=== PATIENT | male | born 1940 | race Caucasian/White ===

== ENCOUNTER 2016-05-18 09:00 | Outpatient (CLI) | payer MEDICARE, OTHER | END 2016-05-18 09:01 | disposition home or self-care (01) | DX: C61 Malignant neoplasm of prostate (principal) ==

== ENCOUNTER 2016-12-20 08:05 | Outpatient (CLI) | payer MEDICARE, OTHER ==
[2016-12-20 13:26] LABS: PSA TOTAL 0.16 ng/mL (0.000-2.000)
== END 2016-12-20 08:06 | disposition home or self-care (01) ==
LOC: LAB.WCP 08:05
PROVIDERS: ATTEND Family Medicine
DX: C61 Malignant neoplasm of prostate (principal)
CPT/HCPCS: 36415; 84153; 84403

== ENCOUNTER 2017-01-03 09:08 | Outpatient (CLI) | payer MEDICARE, OTHER ==
--- NOTE | 2017-01-03 10:40 | Ultrasound Report ---
LIMITED RETROPERITONEAL ULTRASOUND: 01/03/2017 CLINICAL INDICATION: Aneurysm followup. COMPARISON: 09/15/2015 TECHNIQUE: Real-time scanning was performed with group sales representative static images obtained. FINDINGS: The abdominal aorta measures 2.4 cm proximally, and 2.6 cm in the mid portion. Aneurysmal dilatation of the distal abdominal aorta has increased, now measuring 4.3 x 3.9 cm (previously 3.5 x 3.3 cm). Mural thrombus is again seen. The iliacs remain normal in caliber. No free fluid is pres ent. IMPRESSION: INCREASING SIZE OF DISTAL ABDOMINAL AORTIC ANEURYSM, NOW MEASURING 4.3 X 3.9 CM. JOB #: [id number] EXT JOB #:[id number]
== END 2017-01-03 09:09 | disposition home or self-care (01) ==
LOC: DI 09:08
PROVIDERS: ATTEND Family Medicine
DX: I71.4 Abdominal aortic aneurysm, without rupture (principal)
CPT/HCPCS: 76775

== ENCOUNTER 2017-07-03 07:20 | Outpatient (CLI) | payer MEDICARE, OTHER ==
[2017-07-03 13:49] LABS: CHOL/HDL RATIO 4.8 (<5.0); CHOLESTEROL 174 mg/dL; HDL CHOLESTEROL 36 mg/dL; LDL CHOLESTEROL,CALCULATED 106 mg/dL; LDL/HDL RATIO 2.9 (<3.6); VLDL CHOLESTEROL 32 mg/dL
== END 2017-07-03 07:21 | disposition home or self-care (01) ==
LOC: LAB.WCP 07:20
PROVIDERS: ATTEND Family Medicine
DX: E78.5 Hyperlipidemia, unspecified (principal); C61 Malignant neoplasm of prostate; E03.9 Hypothyroidism, unspecified
CPT/HCPCS: 36415; 80061; 83721; 84153; 84443

== ENCOUNTER 2018-01-18 07:18 | Outpatient (CLI) | payer MEDICARE, OTHER ==
[2018-01-18 12:56] LABS: BASOPHILS # (AUTO) 0.1 10^3/uL (0.0-0.1); BASOPHILS % (AUTO) 0.8 %; EOSINOPHILS # (AUTO) 0.3 10^3/uL (0.0-0.7); EOSINOPHILS % (AUTO) 4.4 %; HGB - HEMOGLOBIN 14.3 g/dL (14.0-18.0); LYMPHOCYTES # (AUTO) 2.5 10^3/uL (1.5-3.5); LYMPHOCYTES % (AUTO) 37.9 %; MEAN CORPUSCULAR HEMOGLOBIN 32.1 pg (27.0-31.0); MEAN CORPUSCULAR HGB CONC 34.6 g/dL (32.0-36.0); MEAN CORPUSCULAR VOLUME 92.9 fL (80.0-94.0); MEAN PLATELET VOLUME 7.9 fL (7.4-11.4); MONOCYTES # (AUTO) 0.6 10^3/uL (0.0-1.0); MONOCYTES % (AUTO) 8.8 %; NEUTROPHILS # (AUTO) 3.2 10^3/uL (1.5-6.6); NEUTROPHILS % (AUTO) 48.1 %; PLT - PLATELET COUNT 218 10^3/uL (130-450); RED BLOOD COUNT 4.44 10^6/uL (4.70-6.10); RED CELL DISTRIBUTION WIDTH 13.2 % (12.0-15.0); WHITE BLOOD COUNT 6.6 x10^3/uL (4.8-10.8)
[2018-01-18 13:08] LABS: ALBUMIN 3.7 g/dL (3.2-5.5); ALBUMIN/GLOBULIN RATIO 1.2 (1.0-2.2); ALKALINE PHOSPHATASE 56 IU/L (42-121); ALT ALANINE AMINOTRANSFERASE 14 IU/L (10-60); AST ASPARTATE AMINOTRANSFERASE 19 IU/L (10-42); BILIRUBIN,TOTAL 0.8 mg/dL (0.2-1.0); BUN - BLOOD UREA NITROGEN 20 mg/dL (6-20); CREATININE 1.1 mg/dL (0.6-1.2); GFR - MDRD 65 (>89); TOTAL PROTEIN 6.7 g/dL (6.7-8.2)
[2018-01-18 13:25] LABS: CALCIUM 8.9 mg/dL (8.5-10.3); CARBON DIOXIDE - CO2 26 mmol/L (21-32); CHLORIDE 105 mmol/L (101-111); GLUCOSE 94 mg/dL (70-100); SODIUM 139 mmol/L (135-145)
== END 2018-01-18 07:19 | disposition home or self-care (01) ==
LOC: LAB.WCP 07:18
PROVIDERS: ATTEND Family Medicine
DX: E78.5 Hyperlipidemia, unspecified (principal); E03.9 Hypothyroidism, unspecified; C61 Malignant neoplasm of prostate
CPT/HCPCS: 36415; 80053; 84153; 84443; 85025

== ENCOUNTER 2018-01-23 17:28 | Emergency (ER) | payer MEDICARE, OTHER ==
[2018-01-23 17:55] VITALS: BP 120/79
--- NOTE | 2018-01-23 20:12 | ED Physician Documentation ---
PD HPI UPPER EXT INJURY - Stated complaint Stated Complaint: HOOK IN LT FINGER - Chief complaint Chief Complaint: Wound - History obtained from History obtained from: Patient - History of Present Illness Location: Left, Finger Type of injury: Foreign body Where injury occurred: Other Timing - onset: Enter time (13:00), Today Timing - duration: Hours Timing - details: Abrupt onset Pain level now: 3 Improved by: Rest Worsened by: Moving Associated symptoms: No: Weakness, Numbness Contributing factors: No: Anticoagulated Recently seen: Not recently seen - Additonal information Additional information: amrik become lodged in left fourth digit 1 PM today. Patient is right-hand dominant. Denies weakness, numbness. 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 Skin: reports: Other (FB (waynehoramírez) left fourth digit) Musculoskeletal: reports: Extremity pain Neurologic: denies: Focal weakness, Numbness PD PAST MEDICAL HISTORY - Past Medical History Past Medical History: No Cardiovascular: Hypertension, High cholesterol Respiratory: None, Sleep apnea Endocrine/Autoimmune: HyPOthyroidism GI: None : None HEENT: None Musculoskeletal: None Derm: None Other Past Medical History: prostate CA - Past Surgical History Past Surgical History: No - Present Medications Home Medications: Ambulatory Orders Medication Instructions Recorded Confirmed Levothyroxine Sodium [Synthroid] 100 mcg PO DAILY 07/12/13 11/18/13 Propranolol HCl 20 mg PO DAILY 07/12/13 11/18/13 Aspirin [Aspir 81] 81 mg PO DAILY 11/11/13 11/18/13 Atorvastatin Calcium [Lipitor] 40 mg PO DAILY 11/11/13 11/18/13 - Allergies Allergies/Adverse Reactions: Allergies Allergy/AdvReac Type Severity Reaction Status Date / Time tuberculin, purified protein Allergy Unknown Verified 07/12/13 14:02 deriva [Tuberculin,Purif.Prot.Deriv.] - Social History Does the pt smoke?: No Smoking Status: Never smoker Does the pt drink ETOH?: No Does the pt have substance abuse?: No - Immunizations Immunizations are current?: Yes - POLST Patient has POLST: No PD ED PE NORMAL - Vitals Vital signs reviewed: Yes - General General: Alert and oriented X 3, No acute distress, Well developed/nourished - Neuro Neuro: No motor deficit, No sensory deficit PD ED PE EXPANDED - Extremities NADINE UE/Hands Visual: 1 - tenderness (fishhook (3mm of metal from puncture wound)) Results - Vitals Vitals: Vital Signs - 24 hr 01/23/18 17:51 Temperature 36.1 C L Heart Rate 64 Respiratory 16 Rate Blood Pressure 120/79 O2 Saturation 97 Oxygen O2 Source Room air Procedures - FB removal FB location: Subcutaneous FB removal preparation: Local anesthesia-specify (2%lidocaine without epinephrine) Removal method: Foreceps, Other (slow, steady traction back through puncture site: there was only mild resistance. Initial attempt at pushing the hook forward did not result in any significant protrusion to suggest the tip was superficial enough to attempt to push the hook forward and through the skin.) FB removal aftercare: No complications (After removal, the site was inspected; there remains a tiny (1-2mm) puncture wound but no laceration or enlargement of the initial puncture site (likely due to the very small size of the olesya). LTS intact distally, no active bleeding. FROM (flexion and extension) and non tender to palpation), Patient tolerated well, Removed successfully PD MEDICAL DECISION MAKING - ED course Complexity details: considered differential, d/w patient - Sepsis Event Vital Signs: Vital Signs - 24 hr 01/23/18 17:51 Temperature 36.1 C L Heart Rate 64 Respiratory 16 Rate Blood Pressure 120/79 O2 Saturation 97 Oxygen O2 Source Room air Departure - Departure Disposition: 01 Home, Self Care Clinical Impression: [place] injury to finger Qualifiers: Encounter type: initial encounter Laterality: left Qualified Code(s): S69.92XA - Unspecified injury of left wrist, hand and finger(s), initial encounter Condition: Good Instructions: ED Puncture Wound Fish Hook Removed, ED Immunization Tetanus and FU Discharge Date/Time: 01/23/18 20:42
[2018-01-23] MEDS ORDERED: LIDOCAINE 2% 10 ML MDV ONE (20:17)
[2018-01-23] MEDS ORDERED: BACITRACIN OINT TOP STA (20:34)
[2018-01-23] MEDS ORDERED: TETANUS/DIPHTHERIA/PERTUSSIS 0.5 ML SYRINGE IM ONE (20:34)
== END 2018-01-23 20:42 | disposition home or self-care (01) ==
LOC: ED 17:28
DX: S61.245A Puncture wound with foreign body of left ring finger without damage to nail, initial encounter (principal); W45.8XXA Other foreign body or object entering through skin, initial encounter; Z23 Encounter for immunization; I10 Essential (primary) hypertension; E78.00 Pure hypercholesterolemia, unspecified; E03.9 Hypothyroidism, unspecified; Z85.46 Personal history of malignant neoplasm of prostate; Z79.82 Long term (current) use of aspirin
CPT/HCPCS: 10120; 90471; 90715; 99282; A9270

== ENCOUNTER 2018-08-08 08:00 | Outpatient (CLI) | payer MEDICARE, OTHER ==
[2018-08-08 13:12] LABS: BASOPHILS # (AUTO) 0.1 10^3/uL (0.0-0.1); EOSINOPHILS # (AUTO) 0.3 10^3/uL (0.0-0.7); EOSINOPHILS % (AUTO) 3.9 %; LYMPHOCYTES # (AUTO) 2.5 10^3/uL (1.5-3.5); LYMPHOCYTES % (AUTO) 37.3 %; MEAN CORPUSCULAR HEMOGLOBIN 31.8 pg (27.0-31.0); MEAN CORPUSCULAR HGB CONC 34.4 g/dL (32.0-36.0); MEAN CORPUSCULAR VOLUME 92.6 fL (80.0-94.0); MEAN PLATELET VOLUME 8.2 fL (7.4-11.4); MONOCYTES # (AUTO) 0.5 10^3/uL (0.0-1.0); MONOCYTES % (AUTO) 8.3 %; NEUTROPHILS # (AUTO) 3.3 10^3/uL (1.5-6.6); NEUTROPHILS % (AUTO) 49.5 %; PLT - PLATELET COUNT 223 10^3/uL (130-450); RED CELL DISTRIBUTION WIDTH 13.1 % (12.0-15.0); WHITE BLOOD COUNT 6.6 x10^3/uL (4.8-10.8)
[2018-08-08 13:43] LABS: ALBUMIN 3.7 g/dL (3.2-5.5); ALBUMIN/GLOBULIN RATIO 1.2 (1.0-2.2); ALKALINE PHOSPHATASE 59 IU/L (42-121); ALT ALANINE AMINOTRANSFERASE 17 IU/L (10-60); AST ASPARTATE AMINOTRANSFERASE 21 IU/L (10-42); BILIRUBIN,TOTAL 1.2 mg/dL (0.2-1.0); BUN - BLOOD UREA NITROGEN 22 mg/dL (6-20); CALCIUM 8.7 mg/dL (8.5-10.3); CARBON DIOXIDE - CO2 23 mmol/L (21-32); CHLORIDE 105 mmol/L (101-111); CHOL/HDL RATIO 4.3 (<5.0); CHOLESTEROL 151 mg/dL; CREATININE 1.1 mg/dL (0.6-1.2); GFR - MDRD 65 (>89); GLUCOSE 97 mg/dL (70-100); HDL CHOLESTEROL 35 mg/dL; LDL CHOLESTEROL,CALCULATED 92 mg/dL; LDL/HDL RATIO 2.6 (<3.6); SODIUM 137 mmol/L (135-145); TOTAL PROTEIN 6.9 g/dL (6.7-8.2); VLDL CHOLESTEROL 24 mg/dL
[2018-08-08 13:48] LABS: HB2 TOTAL 15.2 g/dL; HEMOGLOBIN A1C 0.57 g/dL; HEMOGLOBIN A1C % 5.6 % (4.6-6.2)
== END 2018-08-08 23:59 | disposition home or self-care (01) ==
LOC: LAB.WCP 08:00
PROVIDERS: ATTEND Family Medicine
DX: C61 Malignant neoplasm of prostate (principal); D12.6 Benign neoplasm of colon, unspecified; E78.5 Hyperlipidemia, unspecified; I71.4 Abdominal aortic aneurysm, without rupture
CPT/HCPCS: 36415; 80053; 80061; 83036; 83721; 84153; 84443; 85025

== ENCOUNTER 2018-09-03 12:30 | Outpatient (CLI) | payer MEDICARE, OTHER ==
--- NOTE | 2018-09-03 16:51 | Ultrasound Report ---
Reason: AAA Procedure Date: 09/03/2018 Accession Number: [id number] / [id number] Procedure: US - Retroperitoneal Limited CPT Code: FULL RESULT: EXAM: AORTIC DOPPLER ULTRASOUND EXAM DATE: 09/03/2018 01:14 PM. CLINICAL HISTORY: AAA follow-up. COMPARISON: 01/03/2017 and 09/15/2015. TECHNIQUE: Real-time sonographic imaging of retroperitoneal vascular structures, including color-flow, Doppler flow and spectral analysis was performed by the billet recorder. Multiple in store representative static images were saved for review. FINDINGS: Aorta: The abdominal aorta was adequately imaged. Aortic measurements in centimeters as follows: Proximal sagittal 2.3 Mid transverse 2.3 x 2.7 Distal transverse 4.4 x 4.4. Prior measurements 4.3 x 3.9 cm in 2016 and 3.5 x 3.3 cm in 2015. Iliac Vessels: The proximal common iliac arteries are normal in caliber. Measurements in centimeters: Transverse right 0.9 x 0.9 and transverse left 0.9 x 1.0. Other: Aortic plaque is present as well as mural thrombus at the level of the aneurysm. IMPRESSION: Known distal abdominal aortic aneurysm currently 4.4 x 4.4 cm, previously 4.3 x 3.9 cm in 2016 and 3.5 x 3.3 cm in 2015. RADIA
== END 2018-09-03 12:31 | disposition home or self-care (01) ==
LOC: DI 12:30
PROVIDERS: ATTEND Family Medicine
DX: I71.4 Abdominal aortic aneurysm, without rupture (principal)
CPT/HCPCS: 76775

== ENCOUNTER 2020-02-12 08:10 | Outpatient (CLI) | payer MEDICARE, OTHER ==
[2020-02-12 11:56] LABS: BASOPHILS # (AUTO) 0.1 10^3/uL (0.0-0.1); EOSINOPHILS # (AUTO) 0.2 10^3/uL (0.0-0.7); EOSINOPHILS % (AUTO) 3.3 %; HGB - HEMOGLOBIN 13.8 g/dL (14.0-18.0); LYMPHOCYTES # (AUTO) 2.2 10^3/uL (1.5-3.5); LYMPHOCYTES % (AUTO) 30.4 %; MEAN CORPUSCULAR HEMOGLOBIN 31.9 pg (27.0-31.0); MEAN CORPUSCULAR HGB CONC 33.4 g/dL (32.0-36.0); MEAN CORPUSCULAR VOLUME 95.4 fL (80.0-94.0); MEAN PLATELET VOLUME 9.9 fL (7.4-11.4); MONOCYTES # (AUTO) 0.6 10^3/uL (0.0-1.0); MONOCYTES % (AUTO) 8.3 %; NEUTROPHILS # (AUTO) 4.1 10^3/uL (1.5-6.6); NEUTROPHILS % (AUTO) 56.7 %; PLT - PLATELET COUNT 247 10^3/uL (130-450); RED BLOOD COUNT 4.33 10^6/uL (4.70-6.10); RED CELL DISTRIBUTION WIDTH 12.7 % (12.0-15.0); WHITE BLOOD COUNT 7.2 x10^3/uL (4.8-10.8)
[2020-02-12 12:18] LABS: ALBUMIN 3.7 g/dL (3.2-5.5); ALBUMIN/GLOBULIN RATIO 1.2 (1.0-2.2); ALKALINE PHOSPHATASE 59 IU/L (42-121); ALT ALANINE AMINOTRANSFERASE 17 IU/L (10-60); AST ASPARTATE AMINOTRANSFERASE 18 IU/L (10-42); BILIRUBIN,TOTAL 0.9 mg/dL (0.2-1.0); BUN - BLOOD UREA NITROGEN 26 mg/dL (6-20); CALCIUM 8.9 mg/dL (8.5-10.3); CARBON DIOXIDE - CO2 26 mmol/L (21-32); CHLORIDE 107 mmol/L (101-111); CHOLESTEROL 171 mg/dL; CREATININE 1.1 mg/dL (0.6-1.2); GLUCOSE 104 mg/dL (70-100); HDL CHOLESTEROL 43 mg/dL; LDL CHOLESTEROL,CALCULATED 114 mg/dL; LDL/HDL RATIO 2.7 (<3.6); SODIUM 140 mmol/L (135-145); TOTAL PROTEIN 6.8 g/dL (6.7-8.2); VLDL CHOLESTEROL 14 mg/dL
== END 2020-02-12 23:59 | disposition home or self-care (01) ==
LOC: LAB.WCP 08:10
PROVIDERS: ATTEND Family Medicine
DX: E78.5 Hyperlipidemia, unspecified (principal); G47.30 Sleep apnea, unspecified; E03.9 Hypothyroidism, unspecified
CPT/HCPCS: 36415; 80053; 80061; 83721; 84443; 85025

== ENCOUNTER 2020-06-05 10:36 | Outpatient (CLI) | payer MEDICARE, OTHER ==
[2020-06-05] MEDS ORDERED: IOVERSOL 320 100 ML VIAL IVP ONE ×2 (10:51→12:02)
[2020-06-05 11:31] LABS: CREATININE 1.1 mg/dL (0.6-1.2)
--- NOTE | 2020-06-05 12:28 | CT Report ---
PROCEDURE: ANGIO ABDOMEN/PELVIS W INDICATIONS: AAA CONTRAST: IV CONTRAST: Optiray 320 ml: 100 PO CONTRAST: *NO PO CONTRAST TECHNIQUE: After the administration of intravenous contrast, 2 and 5 mm sections acquired from the diaphragm to the iliac crests. 3-dimensional maximum intensity projection (MIP) coronal and sagittal reformats, a nd/or 3-dimensional volume rendering reformatting was then performed. For radiation dose reduction, the following was used: automated exposure control, adjustment of mA and/or kV according to patient size. COMPARISON: None FINDINGS: Image quality: Excellent. Extravascular tissues: Lung bases are clear. Moderate bibasilar pneumonia. Heart size is normal. Li cris and spleen are normal in size and enhancement. Multiple calcifications within the spleen. Gallbl adder is within normal limits Biliary system is non dilated. Pancreas enhances normally. No adrena l nodules. Kidneys are normal in size and enhancement, without hydronephrosis. Non-opacified bowel loops demonstrate normal wall thickness and caliber. Normal appendix. No free fluid or air. No retr operitoneal or mesenteric adenopathy. No ventral hernias. No suspicious bony abnormalities. Multil evel degenerative disc and facet disease within the lumbosacral spine. Probable significant foraminal stenoses at L4-L5 and L5-S1. No vertebral body compression fractures. Multiple seeds within the pro state. Abdominal aorta: A 55 mm short axis abdominal aortic aneurysm is present which demonstrates moderate mural thrombus. The abdominal aorta is mildly aneurysmal at 36 mm short axis, roughly 26 mm inferior to the left renal artery. IMPRESSION: 1. Abdominal aortic aneurysm as described above. 2. Emphysema. 3. Normal appendix. 4. Degenerative disc and facet disease within the lumbosacral spine with probable significant foramin al stenoses at L4-L5 and L5-S1. This could be further assessed with lumbar spine MRI, if clinically i ndicated. Reviewed by: Ranjit Reyes MD on 06/05/2020 12:27 PM PST Approved by: Ranjit Reyes MD on 06/05/2020 12:27 PM PST Station ID: [id number]
== END 2020-06-05 10:37 | disposition home or self-care (01) ==
LOC: LAB 10:36 → DI 10:37
PROVIDERS: ATTEND Surgery
DX: I71.4 Abdominal aortic aneurysm, without rupture (principal)
CPT/HCPCS: 36415; 74174; 82565; 84520; Q9967

== ENCOUNTER 2020-08-21 12:06 | Outpatient (CLI) | payer MEDICARE, OTHER ==
[2020-08-21 18:18] LABS: BASOPHILS # (AUTO) 0.1 10^3/uL (0.0-0.1); BASOPHILS % (AUTO) 0.9 %; EOSINOPHILS # (AUTO) 0.3 10^3/uL (0.0-0.7); EOSINOPHILS % (AUTO) 3.5 %; HCT - HEMATOCRIT 38.3 % (42.0-52.0); HGB - HEMOGLOBIN 12.4 g/dL (14.0-18.0); LYMPHOCYTES # (AUTO) 2.1 10^3/uL (1.5-3.5); LYMPHOCYTES % (AUTO) 28.2 %; MEAN CORPUSCULAR HEMOGLOBIN 30.8 pg (27.0-31.0); MEAN CORPUSCULAR HGB CONC 32.4 g/dL (32.0-36.0); MEAN PLATELET VOLUME 9.3 fL (7.4-11.4); MONOCYTES # (AUTO) 0.7 10^3/uL (0.0-1.0); MONOCYTES % (AUTO) 9.6 %; NEUTROPHILS # (AUTO) 4.3 10^3/uL (1.5-6.6); NEUTROPHILS % (AUTO) 57.5 %; PLT - PLATELET COUNT 244 10^3/uL (130-450); RED BLOOD COUNT 4.03 10^6/uL (4.70-6.10); RED CELL DISTRIBUTION WIDTH 12.6 % (12.0-15.0); WHITE BLOOD COUNT 7.5 x10^3/uL (4.8-10.8)
[2020-08-21 18:36] LABS: ALBUMIN 3.8 g/dL (3.2-5.5); ALBUMIN/GLOBULIN RATIO 1.1 (1.0-2.2); ALKALINE PHOSPHATASE 75 IU/L (42-121); ALT ALANINE AMINOTRANSFERASE 13 IU/L (10-60); AST ASPARTATE AMINOTRANSFERASE 16 IU/L (10-42); BILIRUBIN,TOTAL 0.6 mg/dL (0.2-1.0); BUN - BLOOD UREA NITROGEN 22 mg/dL (6-20); CALCIUM 9.3 mg/dL (8.5-10.3); CARBON DIOXIDE - CO2 26 mmol/L (21-32); CHLORIDE 105 mmol/L (101-111); CHOL/HDL RATIO 3.7 (<5.0); CHOLESTEROL 156 mg/dL; CREATININE 1.2 mg/dL (0.6-1.2); GFR - MDRD 58 (>89); GLUCOSE 110 mg/dL (70-100); HDL CHOLESTEROL 42 mg/dL; LDL CHOLESTEROL,CALCULATED 93 mg/dL; LDL/HDL RATIO 2.2 (<3.6); POTASSIUM 4.3 mmol/L (3.5-5.0); SODIUM 141 mmol/L (135-145); TOTAL PROTEIN 7.2 g/dL (6.7-8.2); TRIGLYCERIDES 106 mg/dL; VLDL CHOLESTEROL 21 mg/dL
[2020-08-21 18:51] LABS: THYROID STIMULATING HORMONE 0.44 uIU/mL (0.34-5.60)
== END 2020-08-21 23:59 | disposition home or self-care (01) ==
LOC: LAB.WCP 12:06
PROVIDERS: ATTEND Family Medicine
DX: E78.5 Hyperlipidemia, unspecified (principal); C61 Malignant neoplasm of prostate; E03.9 Hypothyroidism, unspecified; I71.4 Abdominal aortic aneurysm, without rupture
CPT/HCPCS: 36415; 80053; 80061; 83721; 84153; 84443; 85025

== ENCOUNTER 2021-03-18 07:24 | Outpatient (CLI) | payer MEDICARE, OTHER ==
[2021-03-18 12:30] LABS: BASOPHILS # (AUTO) 0.1 10^3/uL (0.0-0.1); BASOPHILS % (AUTO) 1.4 %; EOSINOPHILS # (AUTO) 0.2 10^3/uL (0.0-0.7); EOSINOPHILS % (AUTO) 3.4 %; HCT - HEMATOCRIT 41.9 % (42.0-52.0); HGB - HEMOGLOBIN 13.6 g/dL (14.0-18.0); LYMPHOCYTES # (AUTO) 2.1 10^3/uL (1.5-3.5); LYMPHOCYTES % (AUTO) 36.9 %; MEAN CORPUSCULAR HEMOGLOBIN 30.8 pg (27.0-31.0); MEAN CORPUSCULAR HGB CONC 32.5 g/dL (32.0-36.0); MEAN PLATELET VOLUME 9.5 fL (7.4-11.4); MONOCYTES # (AUTO) 0.5 10^3/uL (0.0-1.0); MONOCYTES % (AUTO) 8.6 %; NEUTROPHILS # (AUTO) 2.8 10^3/uL (1.5-6.6); NEUTROPHILS % (AUTO) 49.3 %; PLT - PLATELET COUNT 207 10^3/uL (130-450); RED BLOOD COUNT 4.41 10^6/uL (4.70-6.10); RED CELL DISTRIBUTION WIDTH 12.8 % (12.0-15.0); WHITE BLOOD COUNT 5.6 x10^3/uL (4.8-10.8)
== END 2021-03-18 23:59 | disposition home or self-care (01) ==
LOC: LAB.WCP 07:24
PROVIDERS: ATTEND Nurse Practitioner Family
DX: D64.9 Anemia, unspecified (principal)
CPT/HCPCS: 36415; 85025

== ENCOUNTER 2021-03-24 09:35 | Outpatient (CLI) | payer MEDICARE, OTHER ==
[2021-03-24 13:08] LABS: FECAL OCCULT BLOOD (FIT) POSITIVE (NEGATIVE)
== END 2021-03-24 23:59 | disposition home or self-care (01) ==
LOC: LAB.WCP 09:35
PROVIDERS: ATTEND Family Medicine
DX: Z12.11 Encounter for screening for malignant neoplasm of colon (principal)
CPT/HCPCS: 82274

== ENCOUNTER 2021-03-30 11:22 | Outpatient (CLI) | payer MEDICARE, OTHER | END 2021-03-30 23:59 | disposition home or self-care (01) | LOC: LAB.WCP 11:22 | PROVIDERS: ATTEND Family Medicine | DX: C61 Malignant neoplasm of prostate (principal) | CPT/HCPCS: 36415; 84153 ==

== ENCOUNTER 2021-04-12 14:30 | Outpatient (CLI) | payer MEDICARE, OTHER ==
--- NOTE | 2021-04-12 18:31 | CT Report ---
PROCEDURE: CHEST WO INDICATIONS: HX OF ASBESTOS EXPOSURE, SMOKER TECHNIQUE: Noncontrast 1mm axial images were acquired from the pulmonary apices to the posterior costophrenic an gles. Axial 5 mm soft tissue kernel reconstructions were performed as well as 8 mm axial MIP and cor onal and sagittal 5 mm reformations. For radiation dose reduction, the following was used: automate d exposure control, adjustment of mA and/or kV according to patient size. COMPARISON: Correlation is made with the company portions of the abdomen and pelvis CT angiogram, [facility] 06/05/2020. Correlation is made with prior chest radiograph, 07/12/2013. FINDINGS: Image quality: Excellent. Lungs and pleura: Mild emphysematous changes are seen. Within the right lung apex, dense calcificati on can be seen. This appears similar to the 2014 chest radiograph. No fernanda pleural plaques are seen. No acute air space opacities. No pleural effusions or pneumothorax. Central and peripheral airways are patent and normal in caliber. Mediastinum: Heart size is normal. No pericardial effusion. No mediastinal adenopathy by size crit eria. Calcified mediastinal lymph nodes can be seen. Thoracic aorta and central pulmonary arteries ar e normal in size. Esophagus is normal in caliber. No hiatal hernia. Bones and chest wall: No suspicious bony lesions. No vertebral body compression fractures. Age-appr opriate degenerative changes are seen. A T8 vertebral body hemangioma is incidentally noted. No axil ruthie or supraclavicular adenopathy by size criteria. The thyroid is not well seen in this noncontras t study. Abdomen: There is partial visualization of an abdominal aortic stent graft. Bilateral renal artery st ents are seen. Calcified granulomas can be seen within the spleen. The visualized portions of the upp er abdominal structures are otherwise within normal limits. IMPRESSION: No fernanda pleural plaques are seen. Dense calcification can be seen involving the right lung apex, which is most likely benign and simila r to the 2014 chest radiograph. It is related to prior granulomatous exposure in this patient with ca lcified mediastinal lymph nodes. Incidental note is made of: T8 vertebral body hemangioma Abdominal aortic stent graft Renal artery stents Reviewed by: Edy Sharma MD on 04/12/2021 5:29 PM AKST Approved by: Edy Sharma MD on 04/12/2021 5:29 PM AKST Station ID: [id number]
== END 2021-04-12 14:31 | disposition home or self-care (01) ==
LOC: DI 14:30
PROVIDERS: ATTEND Family Medicine
DX: J98.4 Other disorders of lung (principal); Z77.090 Contact with and (suspected) exposure to asbestos; F17.200 Nicotine dependence, unspecified, uncomplicated

== ENCOUNTER 2021-09-13 07:07 | Outpatient (CLI) | payer MEDICARE, OTHER ==
[2021-09-13 12:30] LABS: BASOPHILS # (AUTO) 0.1 10^3/uL (0.0-0.1); BASOPHILS % (AUTO) 1.5 %; EOSINOPHILS # (AUTO) 0.3 10^3/uL (0.0-0.7); EOSINOPHILS % (AUTO) 3.8 %; HCT - HEMATOCRIT 41.4 % (42.0-52.0); HGB - HEMOGLOBIN 13.8 g/dL (14.0-18.0); LYMPHOCYTES # (AUTO) 2.1 10^3/uL (1.5-3.5); LYMPHOCYTES % (AUTO) 30.2 %; MEAN CORPUSCULAR HEMOGLOBIN 31.4 pg (27.0-31.0); MEAN CORPUSCULAR HGB CONC 33.3 g/dL (32.0-36.0); MEAN CORPUSCULAR VOLUME 94.1 fL (80.0-94.0); MEAN PLATELET VOLUME 9.7 fL (7.4-11.4); MONOCYTES # (AUTO) 0.7 10^3/uL (0.0-1.0); MONOCYTES % (AUTO) 9.7 %; NEUTROPHILS # (AUTO) 3.7 10^3/uL (1.5-6.6); NEUTROPHILS % (AUTO) 54.5 %; PLT - PLATELET COUNT 188 10^3/uL (130-450); RED CELL DISTRIBUTION WIDTH 12.4 % (12.0-15.0); WHITE BLOOD COUNT 6.8 x10^3/uL (4.8-10.8)
[2021-09-13 12:55] LABS: THYROID STIMULATING HORMONE 0.21 uIU/mL (0.34-5.60)
[2021-09-13 12:57] LABS: % IRON SATURATION 30 % (20-50); ALBUMIN 3.7 g/dL (3.2-5.5); ALBUMIN/GLOBULIN RATIO 1.2 (1.0-2.2); ALKALINE PHOSPHATASE 65 IU/L (42-121); ALT ALANINE AMINOTRANSFERASE 14 IU/L (10-60); AST ASPARTATE AMINOTRANSFERASE 16 IU/L (10-42); BILIRUBIN,TOTAL 0.8 mg/dL (0.2-1.0); BUN - BLOOD UREA NITROGEN 21 mg/dL (6-20); CALCIUM 9.2 mg/dL (8.5-10.3); CARBON DIOXIDE - CO2 26 mmol/L (21-32); CHLORIDE 104 mmol/L (101-111); CHOL/HDL RATIO 4.5 (<5.0); CHOLESTEROL 184 mg/dL; CREATININE 1.1 mg/dL (0.6-1.2); GFR - MDRD 64 (>89); GLUCOSE 98 mg/dL (70-100); HDL CHOLESTEROL 41 mg/dL; IRON 98 ug/dL (45-182); LDL CHOLESTEROL,CALCULATED 125 mg/dL; POTASSIUM 4.5 mmol/L (3.5-5.0); SODIUM 139 mmol/L (135-145); TOTAL IRON BINDING CAPACITY 329 ug/dL (250-450); TOTAL PROTEIN 6.9 g/dL (6.7-8.2); TRANSFERRIN 235 mg/dL (180-329); TRIGLYCERIDES 92 mg/dL; VLDL CHOLESTEROL 18 mg/dL
[2021-09-13 12:59] LABS: FERRITIN 58.6 ng/mL (23.9-336.2)
[2021-09-13 13:03] LABS: FOLATE 15.98 ng/mL (5.90 - >24.8)
[2021-09-13 16:31] LABS: FREE T4 (FREE THYROXINE) 1.22 ng/dL (0.58-1.64)
== END 2021-09-13 07:08 | disposition home or self-care (01) ==
LOC: LAB.N 07:07
PROVIDERS: ATTEND Family Medicine
DX: I10 Essential (primary) hypertension (principal); D64.9 Anemia, unspecified; C61 Malignant neoplasm of prostate; E03.9 Hypothyroidism, unspecified
CPT/HCPCS: 36415; 80053; 80061; 82607; 82728; 82746; 83540; 83721; 84153; 84439; 84443; 84466; 85025

== ENCOUNTER 2021-11-30 07:30 | Inpatient (IN) | payer MEDICARE, OTHER ==
[~2021-11-30 07:30] MED LIST: LACTATED RINGERS 1,000 ML IV ONE
[2021-11-30] MEDS ORDERED: CEFOTETAN DISODIUM 1 GM VIAL ONE (09:18)
[2021-11-30] MEDS ORDERED: LIDOCAINE-MPF 2% 5 ML VIAL ONE (09:46)
[2021-11-30] MEDS ORDERED: BUPIVACAINE 0.5% PF 30 ML VIAL ONE (09:46)
[2021-11-30] MEDS ORDERED: LIDOCAINE MPF 2%-EPI 1:200000 20 ML VIAL ONE (09:46)
[2021-11-30] MEDS ORDERED: PROPOFOL 200 MG/20 ML VIAL IVP ONE (09:46)
[2021-11-30] MEDS ORDERED: BUPIVACAINE 0.25% PF 10 ML VIAL ONE (09:47)
[2021-11-30] MEDS ORDERED: fentaNYL 100 MCG/2 ML VIAL ONE ×2 (09:48→12:26)
[2021-11-30] MEDS ORDERED: ROCURONIUM 50 MG/5 ML VIAL ONE ×2 (09:48→11:05)
--- NOTE | 2021-11-30 09:55 | ANESTHESIA ---
Pre-Anesthesia VS, & Labs Height: 5 ft 7 in Weight (kg): 68.1 kg Body Mass Index: 23.5 BMI Classification: Healthy weight - NPO >8 hours - Lab Results Lab results reviewed: Yes <Mariah Chang - Last Filed: 11/30/21 09:53> - Diagnosis Right colon tumor (Mariah Chang) - Procedure Laparoscopic right colectomy (Mariah Chang) Vital Signs: Temp Pulse Resp BP Pulse Ox 36.4 C L 60 20 145/86 H 98 11/30/21 09:17 11/30/21 09:17 11/30/21 09:17 11/30/21 09:17 11/30/21 09:17 Home Medications and Allergies <Mariah Chang - Last Filed: 11/30/21 09:53> <Jazlyn Davidson - Last Filed: 11/30/21 10:31> Home Medications: Ambulatory Orders Clobetasol 0.05% Oint [Temovate 0.05% Oint] 0.05 % TOP DAILY 11/30/21 predniSONE [Deltasone] 20 mg PO DAILY 11/30/21 Levothyroxine Sodium [Synthroid] 100 mcg PO DAILY 07/12/13 Propranolol HCl 20 mg PO DAILY 07/12/13 Atorvastatin Calcium [Lipitor] 40 mg PO DAILY 11/11/13 Lisinopril [Zestril] 20 mg PO DAILY 08/12/21 Clobetasol 0.05% Oint [Temovate 0.05% Oint] 0.05 % TOP DAILY 11/30/21 predniSONE [Deltasone] 20 mg PO DAILY 11/30/21 Allergies/Adverse Reactions: Allergies Allergy/AdvReac Type Severity Reaction Status Date / Time tuberculin, purified protein Allergy Edema Verified 08/12/21 13:38 deriva [Tuberculin,Purif.Prot.Deriv.] Anes History & Medical History - Anesthetic History Anesthesia Complications: reports: No previous complications Family history of Anesthesia Complications: Denies Family history of Malignant Hyperthermia: Denies - Medical History Cardiovascular: reports: Hypertension, High cholesterol Pulmonary: reports: Sleep apnea Gastrointestinal: reports: Colon polyps Urinary: reports: Kidney stones Musculoskeletal: reports: None Endocrine/Autoimmune: reports: HyPOthyroidism Skin: reports: Other Smoking Status: Current some day smoker (last ) Psychosocial: reports: No issues indicated History of Cancer?: Yes (prostate) - Surgical History General: reports: Colonoscopy Eyes Ears Nose Throat (EENT): reports: Cataracts Cardiothoracic: reports: Vascular surgery, AAA Urologic: reports: Prostatic surgery <Mariah Chang - Last Filed: 11/30/21 09:53> Exam General: Alert, Oriented x3 Dental: WNL Mouth Openin Fingerbreadth Neck Mobility: Normal Mallampati classification: I Thyromental Distance: 4-6 cm Respiratory: Lungs clear Cardiovascular: No murmurs, Other Neurological: Normal speech Mental/Cognitive Status: Alert/Oriented X3, Normal for patient Cognitive Status: Within normal limits <Mariah Chang - Last Filed: 11/30/21 09:53> Plan Anesthesia Type: General, IV Regional Regional Block: Per Surgeon's request for Post Op pain control Consent for Procedure(s) Verified and Reviewed: Yes Code Status: Attempt Resuscitation ASA classification: 2-Mild systemic disease Is this case an emergency?: No <Mariah Chang - Last Filed: 11/30/21 09:53> Anesthesia Type: Transverse Abdominis Plane (TAP) Block <Jazlyn Davidson - Last Filed: 11/30/21 10:31>
--- NOTE | 2021-11-30 10:13 | HISTORY & PHYSICAL EXAMINATION ---
Chief Complaint - Chief Complaint Chief Complaint: right colon tumor History of Present Illness - History Obtained From Records Reviewed: yes History obtained from: pt Exam Limitations: none - History of Present Illness HPI Comment/Other: mid ascending colon large flat adenomatous polyp unresectable by colonoscopy. here for right colectomy History - Past Medical History Cardiovascular: reports: Hypertension, High cholesterol Respiratory: reports: Sleep apnea Endocrine/Autoimmune: reports: HyPOthyroidism GI: reports: Colon polyps : reports: Kidney stones HEENT: reports: Chronic vision loss Psych: reports: None Musculoskeletal: reports: None Derm: reports: Other MRSA Hx?: No - Past Surgical History General: reports: Colonoscopy Cardiovascular: reports: Vascular surgery, AAA HEENT: reports: Cataracts - POLST Patient has POLST: No Meds/Allgy - Home Medications Home Medications: Ambulatory Orders Medication Instructions Recorded Confirmed Levothyroxine Sodium [Synthroid] 100 mcg PO DAILY 07/12/13 11/30/21 Propranolol HCl 20 mg PO DAILY 07/12/13 11/30/21 Atorvastatin Calcium [Lipitor] 40 mg PO DAILY 11/11/13 11/30/21 Lisinopril [Zestril] 20 mg PO DAILY 08/12/21 11/30/21 Clobetasol 0.05% Oint [Temovate 0.05 % TOP DAILY 11/30/21 11/30/21 0.05% Oint] predniSONE [Deltasone] 20 mg PO DAILY 11/30/21 11/30/21 - Allergies Allergies/Adverse Reactions: Allergies Allergy/AdvReac Type Severity Reaction Status Date / Time tuberculin, purified protein Allergy Edema Verified 08/12/21 13:38 deriva [Tuberculin,Purif.Prot.Deriv.] Review of Systems - Other Findings Other Findings: 10 pt ros as above otherwise unremarkable Exam - Vital Signs Reviewed Vital Signs: Yes Vital Signs: Vital Signs x48h Temp Pulse Resp BP Pulse Ox 11/30/21 09:17 36.4 C L 60 20 145/86 H 98 - Physical Exam General Appearance: positive: No acute distress, Alert Eyes Bilateral: positive: PERRL, EOMI, No scleral icterus ENT: positive: No signs of dehydration Neck: positive: No JVD, Trachea midline Respiratory: positive: Breath sounds nml Cardiovascular: positive: Regular rate & rhythm Abdomen: positive: Non-tender Neurologic/Psychiatric: positive: Oriented x3 Conclusion/Plan - Problem List (1) Colon neoplasm Conclusion/Plan: plan lap right colectomy,possible open. parq held and consent obtained - Lab Results Lab results reviewed: Yes
[2021-11-30] MEDS ORDERED: SODIUM CHLORIDE 0.9% 10 ML VIAL IVP ONE (10:18)
[2021-11-30] MEDS ORDERED: ACETAMINOPHEN 1,000 MG/100 ML 1,000 MG/100 ML BAG IV ONE (10:18)
[2021-11-30] MEDS ORDERED: ROPIVACAINE 0.2% PF 10 ML VIAL ONE ×2 (10:18→10:27)
[2021-11-30] MEDS ORDERED: DEXAMETHASONE 4 MG/ML VIAL ONE (10:28)
[2021-11-30] MEDS ORDERED: ONDANSETRON 4 MG/2 ML VIAL ONE (10:28)
[2021-11-30] MEDS ORDERED: NALOXONE 0.4 MG/ML VIAL IVP PRN (10:31)
[2021-11-30] MEDS ORDERED: fentaNYL 100 MCG/2 ML VIAL IVP PRN (10:31)
[2021-11-30] MEDS ORDERED: ePHEDrine 50 MG/ML VIAL IVP PRN (10:31)
[2021-11-30] MEDS ORDERED: ONDANSETRON 4 MG/2 ML VIAL IVP PRN ×2 (10:31→13:56)
[2021-11-30] MEDS ORDERED: MORPHINE 2 MG/ML CARPUJECT IVP PRN (10:31)
[2021-11-30] MEDS ORDERED: METOCLOPRAMIDE 10 MG/2 ML VIAL IVP PRN (10:31)
[2021-11-30] MEDS ORDERED: ATROPINE ABBOJECT 1 MG/10 ML SYRINGE IVP PRN (10:31)
[2021-11-30] MEDS ORDERED: LACTATED RINGERS 1,000 ML IV SCH (11:00)
[2021-11-30] MEDS ORDERED: BUPIVACAINE 0.25% PF 10 ML VIAL SUBQ ONE ×2 (11:17)
[2021-11-30] MEDS ORDERED: SUGAMMADEX 200 MG/2 ML VIAL IVP ONE (13:28)
[2021-11-30] MEDS ORDERED: SODIUM CHLORIDE FLUSH 0.9% 10 ML SYRINGE IVP PRN (13:56)
[2021-11-30] MEDS ORDERED: HYDROmorphone 0.5 MG/0.5 ML SYRINGE IVP PRN (13:56)
[2021-11-30] MEDS ORDERED: ZOLPIDEM 5 MG TABLET PO PRN (13:56)
[2021-11-30] MEDS ORDERED: ONDANSETRON ODT 4 MG TABLET TL PRN (13:56)
[2021-11-30] MEDS ORDERED: LACTATED RINGERS 1,000 ML IV ONE ×2 (13:56→14:20)
[2021-11-30] MEDS: HYDROmorphone 0.5 MG/0.5 ML SYRINGE IVP PRN ×2 (14:10→14:19)
--- NOTE | 2021-11-30 14:23 | ANESTHESIA POST OP EVALUATION ---
Anesthesia Post Eval - Post Anesthesia Eval Vitals: Last Vital Signs Temp 36.5 C 11/30/21 13:56 Pulse 69 11/30/21 14:16 Resp 14 11/30/21 14:16 BP 157/89 H 11/30/21 14:16 Pulse Ox 94 11/30/21 14:16 CV Function Including HR & BP: Stable Pain Control: Additional Therapies Ordered Nausea & Vomiting: Negative Mental Status: Baseline Respiratory Status: Airway Patent Hydration Status: Satisfactory Anesthesia Complications: None
[2021-11-30] MEDS ORDERED: HYDROmorphone 0.5 MG/0.5 ML SYRINGE ONE (14:32)
--- NOTE | 2021-11-30 14:32 | OPERATIVE REPORT ---
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 no apparent metastatic disease Complications: none - Other Other Information/Narrative: The patient was properly identified brought to the operating room and placed in supine position. Sequential compression devices were placed. General endotracheal anesthesia was induced. He was prepped and draped in a sterile fashion and given preoperative antibiotics. Local anesthetic was given to incision areas. An infraumbilical incision was made. Dissection proceeded down to the fascia. The fascia was incised lifted upwards and abdomen entered with a Veress needle. CO2 was insufflated to a pressure of 15. An 11 mm trocar was placed. A 30 degree scope was used. There was no evidence of injury from Veress needle or trocar placement. Under direct vision a 5 mm trocar was placed in the right upper quadrant and a 5 mm trocar was placed in the left mid abdomen. A 12 mm trocar was placed suprapubically. A plane was created for division of the ileocolic and right colic. Vasculature was divided with a Endo ROSA vascular load. Hemostasis was assured. Terminal ileum was mobilized using harmonic scalpel. This allowed better retraction of the cecum. Mesentery was then divided with harmonic scalpel to the hepatic flexure. The duodenum was carefully protected. The right colon was then fully mobilized by taking down the white line of Toldt. The ureter was identified and carefully protected. Hepatic flexure was completely mobilized. The mesentery was then further taken down towards the distal terminal ileum using harmonic scalpel. The terminal ileum was divided with an Endo ROSA intestinal load clamps were placed on the 2 bowel ends. A 5 cm periumbilical incision was then made. Wound protector was used. The right colon was brought up. The transverse colon was divided with a ROSA load. Both ends of the bowel were clearly well vascularized. A handsewn end of terminal ileum to proximal transverse colon anastomosis was performed in a standard 2 layer technique outer 3-0 silk Lembert's were placed. And a running 3-0 Vicryl suture was placed. Good anastomosis was obtained. Bowel was placed back into the abdominal cavity. Mesenteric defect was very large and not closed. Fascia was closed with 2 running 0 PDS sutures. Abdomen was reinsufflated. Abdomen was irrigated. No apparent complications. Trochars were removed under direct vision and CO2 evacuated. Fascia at the 12 mm trocar site was closed with a [id number] 0 Vicryl. Subcutaneous tissue was irrigated. Buried interrupted subdermal 3-0 Vicryl sutures were placed at the periumbilical site. Skin was loosely reapproximated with running 4-0 Monocryl or buried interrupted. Dressings were applied. He tolerated the procedure well was awakened and brought to recovery in good condition.
[2021-11-30] MEDS: CEFOTETAN DISODIUM 1 GM in SODIUM CHLORIDE 0.9% MINIBAG 100 ML IV SCH (15:35)
[2021-11-30] MEDS: D5.45NS W/20 MEQ KCL 1,000 ML IV SCH (15:39)
[2021-11-30] MEDS: SODIUM CHLORIDE FLUSH 0.9% 10 ML SYRINGE IVP SCH (15:48)
[2021-11-30] MEDS: HYDROcod/ACETAM 5/325 MG TABLET PO PRN (17:02)
[2021-11-30] MEDS: PROPRANOLOL 10 MG TABLET PO SCH (20:32)
[2021-11-30] MEDS: ATORVASTATIN 40 MG TABLET PO SCH (20:32)
[2021-12-01] MEDS: D5.45NS W/20 MEQ KCL 1,000 ML IV SCH ×2 (00:04→08:02)
[2021-12-01] MEDS: CEFOTETAN DISODIUM 1 GM in SODIUM CHLORIDE 0.9% MINIBAG 100 ML IV SCH (01:45)
[2021-12-01] MEDS: SODIUM CHLORIDE FLUSH 0.9% 10 ML SYRINGE IVP SCH ×3 (01:59→19:41)
[2021-12-01] MEDS: HYDROcod/ACETAM 5/325 MG TABLET PO PRN (02:00)
[2021-12-01] MEDS ORDERED: D5.45NS W/20 MEQ KCL 1,000 ML IV SCH (08:15)
--- NOTE | 2021-12-01 08:18 | PROVIDER PROGRESS NOTE ---
Subjective - Subjective Pt reports feeling: Improved (feels well this am. no nausea and minimal pain) Objective - Vital Signs/Intake & Output Reviewed Vital Signs: Yes Vital Signs: Vital Signs x48h Temp Pulse Resp BP Pulse Ox 12/01/21 08:07 36.2 C L 65 22 136/71 H 95 12/01/21 04:18 36.4 C L 65 18 144/77 H 96 Intake & Output: Intake & Output 11/28/21 11/29/21 11/30/21 12/01/21 23:59 23:59 23:59 23:59 Intake Total 913.085 7355.750 Output Total 900 1400 Balance -297.917 693.750 - Objective General Appearance: positive: No acute distress, Alert Eyes Bilateral: positive: PERRL, EOMI, No scleral icterus ENT: positive: No signs of dehydration Neck: positive: No JVD, Trachea midline Respiratory: positive: No respiratory distress Abdomen: positive: Non-tender, No distention Neurologic/Psychiatric: positive: Oriented x3 Assessment/Plan - Problem List (1) Colon neoplasm Impression: postop day 1. doing well. decrease ivf. diet clears. faust out later today or tomorrow
[2021-12-01] MEDS: CLOBETASOL 0.05% OINT 15 GM TUBE TOP SCH (10:36)
[2021-12-01] MEDS: lisinopriL 5 MG TABLET PO SCH (10:41)
[2021-12-01] MEDS: PROPRANOLOL 10 MG TABLET PO SCH ×2 (10:41→19:40)
[2021-12-01] MEDS: HEPARIN 5,000 UNIT/ML VIAL SUBQ SCH ×2 (10:43→19:58)
[2021-12-01] MEDS: ATORVASTATIN 40 MG TABLET PO SCH (19:40)
[2021-12-01] MEDS: LEVOTHYROXINE 100 MCG TABLET PO SCH (19:40)
[2021-12-02] MEDS: SODIUM CHLORIDE FLUSH 0.9% 10 ML SYRINGE IVP SCH ×3 (01:00→16:33)
[2021-12-02] MEDS: HYDROcod/ACETAM 5/325 MG TABLET PO PRN ×3 (06:20→18:35)
[2021-12-02] MEDS: LEVOTHYROXINE 100 MCG TABLET PO SCH (06:20)
--- NOTE | 2021-12-02 09:50 | PROVIDER PROGRESS NOTE ---
Subjective - Prog Note Date Prog Note Date: 12/02/21 - Subjective Pt reports feeling: No change (denies nausea or pain. little appetite. small bm last pm no flatus today) Objective - Vital Signs/Intake & Output Reviewed Vital Signs: Yes Vital Signs: Vital Signs x48h Temp Pulse Resp BP Pulse Ox 12/02/21 07:52 37.4 C 72 16 124/66 95 Intake & Output: Intake & Output 11/29/21 11/30/21 12/01/21 12/02/21 23:59 23:59 23:59 23:59 Intake Total 409.352 7854.083 200 Output Total 900 3950 Balance -297.917 -580.917 200 - Objective General Appearance: positive: No acute distress, Alert Eyes Bilateral: positive: PERRL, EOMI ENT: positive: No signs of dehydration Neck: positive: No JVD, Trachea midline Respiratory: positive: No respiratory distress Abdomen: positive: Non-tender, No distention Neurologic/Psychiatric: positive: Oriented x3 Assessment/Plan - Problem List (1) Colon neoplasm Impression: postop day 2 colectomy. continue present care with clear liquid diet. advance when appetite returning and ileus resolving.
[2021-12-02] MEDS: lisinopriL 5 MG TABLET PO SCH (10:07)
[2021-12-02] MEDS: HEPARIN 5,000 UNIT/ML VIAL SUBQ SCH ×2 (10:16→20:37)
[2021-12-02] MEDS: CLOBETASOL 0.05% OINT 15 GM TUBE TOP SCH (10:17)
[2021-12-02] MEDS: PROPRANOLOL 10 MG TABLET PO SCH ×2 (10:17→20:37)
[2021-12-02] MEDS: ATORVASTATIN 40 MG TABLET PO SCH (20:37)
[2021-12-03] MEDS: SODIUM CHLORIDE FLUSH 0.9% 10 ML SYRINGE IVP SCH ×2 (00:33→08:27)
[2021-12-03] MEDS: LEVOTHYROXINE 100 MCG TABLET PO SCH (06:51)
[2021-12-03] MEDS: CLOBETASOL 0.05% OINT 15 GM TUBE TOP SCH (08:21)
[2021-12-03] MEDS: lisinopriL 5 MG TABLET PO SCH (08:27)
[2021-12-03] MEDS: PROPRANOLOL 10 MG TABLET PO SCH (08:27)
[2021-12-03] MEDS: HEPARIN 5,000 UNIT/ML VIAL SUBQ SCH (10:25)
--- NOTE | 2021-12-03 10:49 | Discharge Plan ---
Discharge Plan Problem Reviewed?: Yes Disposition: Home, Self Care Condition: Good Diet: Regular (diet as tolerated) Activity Restrictions: No Restrictions Shower Restrictions: No (ok to shower and get the dressing wet. leave the dressing on for 3to 5 day) Driving Restrictions: No Health Concerns: colectomy 11/30/2021 for large right colon polyp Additional Instructions or Follow Up instructions: call for fever over 101, incision area redness, continued nausea and vomiting, any concerns [phone] No Smoking: If you smoke, Please STOP! Call for help. Follow-up with: Tia Correia PA-C [Primary Care Provider] - Lino Colmenares MD [Provider Admit Priv/Credential] -
--- NOTE | 2021-12-03 10:53 | DISCHARGE SUMMARY ---
"Discharge Summary Admit Date: 11/30/21 Discharge Date: 12/03/21 Discharging Provider: elvira bertrand Code Status: Attempt Resuscitation Condition at Discharge: Good Discharge Disposition: 01 Home, Self Care Discharge Facility Name: [facility] - DIAGNOSES Admission Diagnoses: large tubulovillous adenoma right colon Discharge Diagnoses with Status of Each Condition: home in good condition after laparoscopic right hemicolectomy - HPI History of Present Illness: screening colonoscopy revealed a large tubulovillous adenoma that required colectomy - CONSULTS | PROCEDURES Procedures: lap right hemicolectomy 11/30/2021 and faust placement for 1 day - HOSPITAL COURSE Hospital Course: did very well. minimal pain, ambulating well and taking clears well prior to d/c. no nausea, vomiting. passing gas and small bm - ALLERGIES Allergies/Adverse Reactions: Allergies Allergy/AdvReac Type Severity Reaction Status Date / Time tuberculin, purified protein Allergy Edema Verified 08/12/21 13:38 deriva [Tuberculin,Purif.Prot.Deriv.] - MEDICATIONS Home Medications: Ambulatory Orders Medication Instructions Recorded Confirmed Levothyroxine Sodium [Synthroid] 100 mcg PO DAILY 07/12/13 11/30/21 Propranolol HCl 20 mg PO DAILY 07/12/13 11/30/21 Atorvastatin Calcium [Lipitor] 40 mg PO DAILY 11/11/13 11/30/21 Lisinopril [Zestril] 20 mg PO DAILY 08/12/21 11/30/21 Clobetasol 0.05% Oint [Temovate 0.05 % TOP DAILY 11/30/21 11/30/21 0.05% Oint] Clobetasol 0.05% Oint [Temovate 1 applic TOP BID 11/30/21 11/30/21 0.05% Oint] Lisinopril [Zestril] 5 mg PO DAILY 11/30/21 11/30/21 metroNIDAZOLE 0.75% GEL [Flagyl 1 applic TOP BID 11/30/21 11/30/21 Gel] predniSONE [Deltasone] 20 mg PO DAILY 11/30/21 11/30/21 - PHYSICAL EXAM AT DISCHARGE General Appearance: positive: No acute distress, Alert Eyes Bilateral: positive: PERRL, EOMI, No scleral icterus ENT: positive: No signs of dehydration Neck: positive: No JVD Respiratory: positive: No respiratory distress Abdomen: positive: Non-tender, No distention, Other (dressings c/d/i no erythema) Neurologic/Psychiatric: positive: Oriented x3 - FOLLOW UP Follow Up: elvira bertrand md in 1 week and prn [phone]"
[2021-12-03] MEDS: HYDROcod/ACETAM 5/325 MG TABLET PO PRN (11:00)
[2021-12-03 13:32] VITALS: BP 134/78
== END 2021-12-03 13:40 | disposition home or self-care (01) | DRG 331 ==
LOC: MS2 08:47
PROVIDERS: ADMIT Surgery; ATTEND Surgery
PROC: 0DTF4ZZ Resection of Right Large Intestine, Percutaneous Endoscopic Approach (ICD-10-PCS; principal; 2021-11-30 10:30)
DX: D12.2 Benign neoplasm of ascending colon (principal); I10 Essential (primary) hypertension; E78.00 Pure hypercholesterolemia, unspecified; G47.30 Sleep apnea, unspecified; E03.9 Hypothyroidism, unspecified; H54.7 Unspecified visual loss; Z79.52 Long term (current) use of systemic steroids; Z79.890 Hormone replacement therapy; Z79.899 Other long term (current) drug therapy
CPT/HCPCS: A9270; J0131; J1170; J7120

== ENCOUNTER 2022-01-24 07:49 | Outpatient (CLI) | payer MEDICARE, OTHER ==
[2022-01-24 13:18] LABS: THYROID STIMULATING HORMONE 0.05 uIU/mL (0.34-5.60)
[2022-01-24 13:51] LABS: FREE T4 (FREE THYROXINE) 1.3 ng/dL (0.58-1.64)
== END 2022-01-24 07:50 | disposition home or self-care (01) ==
LOC: LAB.N 07:49
PROVIDERS: ATTEND Nurse Practitioner Family
DX: E03.9 Hypothyroidism, unspecified (principal)
CPT/HCPCS: 36415; 84439; 84443

== ENCOUNTER 2022-02-14 08:49 | Outpatient (CLI) | payer MEDICARE, OTHER | END 2022-02-14 08:50 | disposition critical access hospital (66) | LOC: EMS 08:49 | DX: K08.419 Partial loss of teeth due to trauma, unspecified class (principal); S01.511A Laceration without foreign body of lip, initial encounter; S01.81XA Laceration without foreign body of other part of head, initial encounter; S61.412A Laceration without foreign body of left hand, initial encounter; S61.411A Laceration without foreign body of right hand, initial encounter; S81.012A Laceration without foreign body, left knee, initial encounter; S81.011A Laceration without foreign body, right knee, initial encounter; W01.0XXA Fall on same level from slipping, tripping and stumbling without subsequent striking against object, initial encounter; Y93.01 Activity, walking, marching and hiking; Y92.481 Parking lot as the place of occurrence of the external cause | CPT/HCPCS: A0425; A0429 ==

== ENCOUNTER 2022-02-14 09:05 | Day surgery (SDC) | payer MEDICARE, OTHER ==
[~2022-02-14 09:05] MED LIST changes: +ATROPINE ABBOJECT 1 MG/10 ML SYRINGE IVP PRN; +HYDROmorphone 0.5 MG/0.5 ML SYRINGE IVP PRN; -LACTATED RINGERS 1,000 ML IV ONE; +METOCLOPRAMIDE 10 MG/2 ML VIAL IVP PRN; +MORPHINE 2 MG/ML CARPUJECT IVP PRN; +NALOXONE 0.4 MG/ML VIAL IVP PRN; +ONDANSETRON 4 MG/2 ML VIAL IVP PRN; +SODIUM CHLORIDE 0.9% 1,000 ML IV ONE; +ePHEDrine 50 MG/ML VIAL IVP PRN; +fentaNYL 100 MCG/2 ML VIAL IVP PRN; +oxyCODONE 10 MG/0.5 ML SYRINGE PO PRN
--- NOTE | 2022-02-14 10:14 | CT Report ---
PROCEDURE: HEAD WO INDICATIONS: fall/head injury TECHNIQUE: Noncontrast 4.5 mm thick angled axial sections acquired from the foramen magnum to the vertex. For r adiation dose reduction, the following was used: automated exposure control, adjustment of mA and/or kV according to patient size. COMPARISON: Correlation is made with a complete maxillofacial CT and cervical spine CT, 02/14/2022. FINDINGS: Image quality: There is streak artifact seen through the skull base. CSF spaces: Basal cisterns are patent. No extra-axial fluid collections. Ventricles are normal in size and shape. Brain: No midline shift. No intracranial masses or hemorrhage. Suresh-white matter interface is norm al. Skull and face: Extensive facial bone fractures are seen, with soft tissue gas and soft tissue swelli ng. Sinuses: There is blood seen within the maxillary sinuses and ethmoid air cells. No significant abnor mal fluid can be seen within the mastoid air cells. IMPRESSION: Extensive facial bone fractures are seen, with associated soft tissue gas and soft tissu e swelling. Blood is seen within the paranasal sinuses. No intracranial hemorrhage is seen. No significant intracranial abnormality is seen. Reviewed by: Edy Sharma MD on 02/14/2022 9:13 AM LEDY Approved by: Edy Sharma MD on 02/14/2022 9:13 AM LEDY Station ID: [id number]
--- NOTE | 2022-02-14 10:23 | CT Report ---
PROCEDURE: MAXILLOFACIAL WO INDICATIONS: fall/facial injury TECHNIQUE: Noncontrast 1.5 mm thick axial images acquired from the mandible through the frontal sinuses, with co elvira and sagittal reformatting. For radiation dose reduction, the following was used: automated ex posure control, adjustment of mA and/or kV according to patient size. COMPARISON: None. FINDINGS: Image quality: Excellent. Bones and teeth: Extensive facial bone fractures are seen, including the anterior, medial, and later al kaur of both maxillary sinuses. Extensive nasal bone fractures are seen, which are deviated to th e left side. The nasal septum is fractured. Fractures are seen of the pterygoid plates, left more ext ensive than the right. No definite orbital wall fractures are seen. No definite fracture or dislocation can be seen of the m andible. There is an additional potential fracture involving the left aspect of the clivus, which is nondispla alfonso or minimally displaced, as seen on series 5 image 93 and on series 2 image 107. Sinuses: The sinuses demonstrate blood within them, particularly the maxillary sinuses and the ethmo id air cells. Small amount of blood can also be seen within the sphenoid sinuses and the inferomedial frontal sinuses. Soft tissues: Soft tissue swelling and gas can be seen throughout the mid face and within the central forehead. Vascular: Visualized vascular structures appear normal in the absence of contrast. Bony vascular fo ramina and canals are intact. IMPRESSION: Extensive facial bone fractures are seen involving the nose, nasal septum, and kaur of the maxillary sinuses. The pterygoid plates are also fractured. There is a potential additional fracture seen invo lving the left aspect of the clivus. Associated soft tissue swelling and soft tissue gas can be seen. There is also blood seen within the paranasal sinuses. Reviewed by: Edy Sharma MD on 02/14/2022 9:21 AM LEDY Approved by: Edy Sharma MD on 02/14/2022 9:21 AM LEDY Station ID: [id number]
--- NOTE | 2022-02-14 10:23 | CT Report ---
PROCEDURE: CERVICAL SPINE WO INDICATIONS: fall/head injury TECHNIQUE: Noncontrast 3 mm thick sections acquired from the skull base to the T4 level. Sagittal and coronal r eformats were then constructed. For radiation dose reduction, the following was used: automated exp osure control, adjustment of mA and/or kV according to patient size. COMPARISON: None. FINDINGS: Multiple facial fractures partially visualized. Please see separately dictated maxillofacial CT repor t. Normal alignment of the craniocervical junction. There is a nondisplaced fracture of the clivus just right of midline. No fracture of the cervical vertebrae. Degenerative straightening of the usual cervical lordosis. Nor mal cervical spine vertebral body height and alignment otherwise. No suspicious lytic or blastic osse ous lesion. Moderate multilevel multifactorial degenerative changes throughout the cervical spine. Right apical pleural parenchymal scarring with associated coursing calcification. IMPRESSION: Nondisplaced clivus fracture. Multiple partially visualized facial fractures. Please see separately dictated maxillofacial CT repor t for complete description. Reviewed by: Laureano Rock MD on 02/14/2022 10:21 AM PDT Approved by: Laureano Rock MD on 02/14/2022 10:21 AM PDT Station ID: [id number]
[2022-02-14] MEDS ORDERED: AMPICILLIN/SULBACTAM 3 GM in SODIUM CHLORIDE 0.9% MINIBAG 100 ML IV STA (11:00)
[2022-02-14] MEDS ORDERED: SODIUM CHLORIDE 0.9% 1,000 ML IV STA (11:00)
[2022-02-14 11:03] LABS: BASOPHILS # (AUTO) 0.1 10^3/uL (0.0-0.1); BASOPHILS % (AUTO) 1.2 %; EOSINOPHILS # (AUTO) 0.2 10^3/uL (0.0-0.7); EOSINOPHILS % (AUTO) 2.7 %; HCT - HEMATOCRIT 39.8 % (42.0-52.0); HGB - HEMOGLOBIN 13.8 g/dL (14.0-18.0); LYMPHOCYTES # (AUTO) 2.6 10^3/uL (1.5-3.5); LYMPHOCYTES % (AUTO) 30.6 %; MEAN CORPUSCULAR HEMOGLOBIN 32.1 pg (27.0-31.0); MEAN CORPUSCULAR HGB CONC 34.7 g/dL (32.0-36.0); MEAN CORPUSCULAR VOLUME 92.6 fL (80.0-94.0); MEAN PLATELET VOLUME 9.5 fL (7.4-11.4); MONOCYTES # (AUTO) 0.8 10^3/uL (0.0-1.0); MONOCYTES % (AUTO) 9.7 %; NEUTROPHILS # (AUTO) 4.6 10^3/uL (1.5-6.6); NEUTROPHILS % (AUTO) 55.4 %; PLT - PLATELET COUNT 249 10^3/uL (130-450); RED CELL DISTRIBUTION WIDTH 13.1 % (12.0-15.0); WHITE BLOOD COUNT 8.4 x10^3/uL (4.8-10.8)
[2022-02-14 11:14] LABS: ALBUMIN 3.9 g/dL (3.2-5.5); ALBUMIN/GLOBULIN RATIO 1.3 (1.0-2.2); BILIRUBIN,TOTAL 0.9 mg/dL (0.2-1.0); CALCIUM 8.9 mg/dL (8.5-10.3); CREATININE 1.1 mg/dL (0.6-1.2); POTASSIUM 4.5 mmol/L (3.5-5.0); TOTAL PROTEIN 6.9 g/dL (6.7-8.2)
[2022-02-14 12:04] LABS: CORONAVIRUS 229E-RESP PCR NOT DETECTED; CORONAVIRUS HKU1-RESP PCR NOT DETECTED; CORONAVIRUS NL63-RESP PCR NOT DETECTED; CORONAVIRUS OC43-RESP PCR NOT DETECTED; HUMAN METAPNEUMOVIRUS NOT DETECTED; INFLUENZA A- RESP PCR PANEL NOT DETECTED; INFLUENZA B - RESP PCR PANEL NOT DETECTED; PARAINFLUENZA VIRUS 1 NOT DETECTED; RHINOVIRUS/ENTEROVIRUS NOT DETECTED; SARS-CoV-2 -RESP PCR PANEL NOT DETECTED
[2022-02-14 12:05] LABS: B. PARAPERTUSSIS- RESP PCR PAN NOT DETECTED; B. PERTUSSIS- RESP PCR PANEL NOT DETECTED; C. PNEUMONIAE- RESP PCR PANEL NOT DETECTED; M. PNEUMONIAE- RESP PCR PANEL NOT DETECTED; PARAINFLUENZA VIRUS 2 NOT DETECTED; PARAINFLUENZA VIRUS 3 NOT DETECTED; PARAINFLUENZA VIRUS 4 NOT DETECTED; RSV- RESP PCR PANEL NOT DETECTED
[2022-02-14] MEDS ORDERED: HYDROmorphone 0.5 MG/0.5 ML SYRINGE IVP STA (12:06)
--- NOTE | 2022-02-14 13:42 | ED Physician Documentation ---
PD HPI HEAD INJURY - Stated complaint Stated Complaint: GLF/FACIAL INJURIES - Chief complaint Chief Complaint: Trauma Hd/Nk - History obtained from History obtained from: Patient - Additional information Additional information: The patient is brought to the emergency department by EMS for chief complaint of Facial injuries after ground-level fall. The patient was ambulating through the parking lot of [employer] when he tripped and fell face first onto the concrete. He did not lose consciousness and was not injured in any other way, but did sustain extensive abrasions, lacerations, and injury to his face, mainly down the middle. He was ambulatory on scene after the medics helped him up. He denies any spinal pain, rib pain, abdominal pain, chest pain, hip pain, pelvic pain, or extremity pain. He denies any headache or visual changes. He did not get several teeth out. No other complaints at this time. He is not anticoagulated. Review of Systems Ten Systems: 10 systems reviewed and negative Constitutional: reports: Reviewed and negative Eyes: reports: Reviewed and negative Ears: reports: Reviewed and negative Nose: reports: Epistaxis Throat: reports: Reviewed and negative Cardiac: reports: Reviewed and negative Respiratory: reports: Reviewed and negative GI: reports: Reviewed and negative : reports: Reviewed and negative Skin: reports: Abrasion (s) Musculoskeletal: reports: Reviewed and negative Neurologic: reports: Head injury Psychiatric: reports: Reviewed and negative Endocrine: reports: Reviewed and negative Immunocompromised: reports: Reviewed and negative PD PAST MEDICAL HISTORY - Past Medical History Past Medical History: Yes Cardiovascular: Hypertension, High cholesterol Respiratory: Sleep apnea Endocrine/Autoimmune: HyPOthyroidism GI: Colon polyps : Kidney stones HEENT: Chronic vision loss Psych: None Musculoskeletal: None Derm: Other - Past Surgical History Past Surgical History: No General: Colonoscopy Cardiovascular: Vascular surgery, AAA HEENT: Cataracts - Present Medications Home Medications: Ambulatory Orders Medication Instructions Recorded Confirmed Levothyroxine Sodium [Synthroid] 100 mcg PO DAILY 07/12/13 02/14/22 Propranolol HCl 20 mg PO DAILY 07/12/13 02/14/22 Atorvastatin Calcium [Lipitor] 40 mg PO DAILY 11/11/13 02/14/22 lisinopriL [Lisinopril] 10 mg PO DAILY 02/14/22 02/14/22 - Allergies Allergies/Adverse Reactions: Allergies Allergy/AdvReac Type Severity Reaction Status Date / Time tuberculin, purified protein Allergy Edema Verified 02/14/22 09:22 deriva [Tuberculin,Purif.Prot.Deriv.] - Social History Does the pt smoke?: No Smoking Status: Never smoker Does the pt drink ETOH?: No Does the pt have substance abuse?: No - Immunizations Immunizations are current?: Yes - POLST Patient has POLST: No PD ED PE NORMAL - Vitals Vital signs reviewed: Yes - General General: Alert and oriented X 3, No acute distress, Well developed/nourished - HEENT HEENT: PERRL, EOMI, Moist mucous membranes, Other (Abrasions Of length of nose, upper lip, and chin with 1.5 cm laceration over nasal bridge. Macerated laceration of midline upper lip. Avulsion Of several maxillary central teeth. Nasal septal disruption. Mild epistaxis. 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 No step-off or crepitus. No contusion or edema of anywhere else on the face other than the midline. No maxillary instability or tenderness. No asymmetry. No frontal tenderness, asymmetry, deformity, or step-off. No hip tenderness or pelvic instability. Results - Vitals Vitals: Vital Signs - 24 hr 02/14/22 02/14/22 02/14/22 09:16 11:22 13:00 Temperature 36.2 C L 36.6 C 36.6 C Heart Rate 75 63 60 Respiratory 16 26 H 14 Rate Blood Pressure 132/92 H 150/84 H 141/79 H O2 Saturation 96 99 98 02/14/22 02/14/22 15:00 17:00 Temperature 36.7 C 36.2 C L Heart Rate 63 68 Respiratory 24 16 Rate Blood Pressure 134/65 H 129/56 L O2 Saturation 98 100 Oxygen O2 Source Room air - Labs Labs: Laboratory Tests 02/14/22 02/14/22 02/14/22 09:16 09:16 11:02 WBC 8.4 RBC 4.30 L Hgb 13.8 L Hct 39.8 L MCV 92.6 MCH 32.1 H MCHC 34.7 RDW 13.1 Plt Count 249 MPV 9.5 Neut # (Auto) 4.6 Lymph # (Auto) 2.6 O'Brien # (Auto) 0.8 Eos # (Auto) 0.2 Baso # (Auto) 0.1 Absolute Nucleated RBC 0.00 Nucleated RBC % 0.0 Sodium 135 Potassium 4.5 Chloride 105 Carbon Dioxide 22 Anion Gap 8.0 BUN 20 Creatinine 1.1 Estimated GFR (MDRD) 64 L Glucose 134 H Calcium 8.9 Total Bilirubin 0.9 AST 18 ALT 15 Alkaline Phosphatase 75 Total Protein 6.9 Albumin 3.9 Globulin 3.0 Albumin/Globulin Ratio 1.3 Lipase 43 Nasal Adenovirus (PCR) NOT DETECTED Nasal B. parapertussis DNA (PCR) NOT DETECTED Nasal Coronavir 229E PCR NOT DETECTED Nasal Coronavir HKU1 PCR NOT DETECTED Nasal Coronavir NL63 PCR NOT DETECTED Nasal Coronavir OC43 PCR NOT DETECTED Nasal Enterovir/Rhinovir PCR NOT DETECTED Nasal Influenza B PCR NOT DETECTED Nasal Influenza A PCR NOT DETECTED Nasal Parainfluen 1 PCR NOT DETECTED Nasal Parainfluen 2 PCR NOT DETECTED Nasal Parainfluen 3 PCR NOT DETECTED Nasal Parainfluen 4 PCR NOT DETECTED Nasal RSV (PCR) NOT DETECTED Nasal B.pertussis DNA PCR NOT DETECTED Nasal C.pneumoniae (PCR) NOT DETECTED Cornelius Human Metapneumo PCR NOT DETECTED Nasal M.pneumoniae (PCR) NOT DETECTED Nasal SARS-CoV-2 (PCR) NOT DETECTED - Rads (name of study) CT head Radiology: Final report received, EMP read indepedently, See rad report (No acute intracranial findings) CT C-spine Radiology: Final report received, EMP read indepedently, See rad report (No C- spine fracture; nondisplaced clivus fracture) CT maxillofacial Radiology: Final report received, EMP read indepedently, See rad report (Ext ensive facial fractures including bilateral maxillary, pterygoids, and comminution with deviation of nasal bone. Nasal septal fracture. Clivus fracture) PD MEDICAL DECISION MAKING - ED course Complexity details: reviewed results, re-evaluated patient, considered differential, d/w patient ED course: The patient was treated symptomatically and worked up with imaging studies which showed extensive facial fractures, as well as clivus fracture. I spoke with Dr. Faith about the facial fractures and he stated he would be happy to definitively manage those, but needed neurosurgical clearance and input regarding the clivus fracture. I did call [facility] and spoke with a Dr. Charlotte Doshi, the on-call neurosurgeon. He did review the patient's images and stated that the clivus fracture would be nonoperative and would require no further intervention, including no need for neurosurgery follow-up. He felt the patient could proceed with definitive management of his facial bone fractures here at [facility]. I relayed this information to Dr. Faith who did come and see the patient in the emergency department. The patient was given a dose of Unasyn IV here initially and did receive a second 1 In advance of his transfer to the operating room. At this point, there are no beds in the hospital so the plan is for the patient to wait here until he goes to the operating room with Dr. Faith and then likely will come back here to recover and to be observed for any further needs until he is ready for discharge or until a bed comes available. Patient is agreeable to this plan. I have signed the patient out to Dr. Raz Larson, pending transfer to the operating room. Departure - Departure Disposition: ED Transfer to [facility] Clinical Impression: LeFort I fracture Qualifiers: Encounter type: initial encounter Fracture type: closed Qualified Code(s): S02.411A - LeFort I fracture, initial encounter for closed fracture Nasal bones, open fracture Qualifiers: Encounter type: initial encounter Qualified Code(s): S02.2XXB - Fracture of nasal bones, initial encounter for open fracture Fracture of clivus of occipital bone Qualifiers: Encounter type: initial encounter Fracture type: closed Qualified Code(s): S02.118A - Other fracture of occiput, unspecified side, initial encounter for closed fracture Condition: Serious
[2022-02-14] MEDS ORDERED: MINERAL OIL/PETROLAT OPHTH OINT ONE ×2 (14:42→19:46)
[2022-02-14] MEDS ORDERED: OXYMETAZOLINE HCL 100 SPRAYS BOTTLE ONE ×2 (14:43→19:47)
[2022-02-14] MEDS ORDERED: oxyCODONE 10 MG/0.5 ML SYRINGE PO PRN (16:37)
[2022-02-14] MEDS ORDERED: MORPHINE 2 MG/ML CARPUJECT IVP PRN ×2 (16:37→21:00)
[2022-02-14] MEDS ORDERED: ONDANSETRON 4 MG/2 ML VIAL IVP PRN ×2 (16:37→21:00)
--- NOTE | 2022-02-14 16:44 | XRAY Report ---
PROCEDURE: Chest 1 View X-Ray INDICATIONS: chest pain TECHNIQUE: One view of the chest was acquired. COMPARISON: CT of chest dated 04/12/2021 FINDINGS: Surgical changes and devices: None. Lungs and pleura: No pleural effusions or pneumothorax. Mild pulmonary vascular congestion is seen. No definite focal infiltrate. Mediastinum: Mediastinal contours appear normal. Heart size is normal. Bones and chest wall: No suspicious bony lesions. Overlying soft tissues appear unremarkable. IMPRESSION: Mild congestion. No focal infiltrate, pleural effusion or pneumothorax. Reviewed by: Owen Pineda MD on 02/14/2022 4:42 PM PDT Approved by: Owen Pineda MD on 02/14/2022 4:42 PM PDT Station ID: [id number]
--- NOTE | 2022-02-14 17:18 | ANESTHESIA ---
Pre-Anesthesia VS, & Labs Height: 5 ft 7 in Weight (kg): 69.8 kg Body Mass Index: 24.0 BMI Classification: Normal - Lab Results Fish Bones: 02/14/22 09:16 02/14/22 09:16 <Jazlyn Davidson - Last Filed: 02/14/22 17:16> - NPO >8 hours - Lab Results Fish Bones: 02/14/22 09:16 02/14/22 09:16 <Katrin Escobar - Last Filed: 02/14/22 20:11> - Diagnosis LeFort I fracture (Jazlyn Davidson) - Procedure ORIF Lef[place] I (Jazlyn Davidson) Vital Signs: Temp Pulse Resp BP Pulse Ox O2 Flow Rate 36.4 C L 70 26 H 123/54 L 98 02/14/22 19:00 02/14/22 19:00 02/14/22 19:00 02/14/22 19:00 02/14/22 19:00 - Lab Results Current Lab Results: Laboratory Tests 02/14/22 09:16: Sodium 135, Potassium 4.5, Chloride 105, Carbon Dioxide 22, Anion Gap 8.0, BUN 20, Creatinine 1.1, Estimated GFR (MDRD) 64 L, Glucose 134 H, Calcium 8.9, Total Bilirubin 0.9, AST 18, ALT 15, Alkaline Phosphatase 75, Total Protein 6.9, Albumin 3.9, Globulin 3.0, Albumin/Globulin Ratio 1.3, Lipase 43 02/14/22 09:16: WBC 8.4, RBC 4.30 L, Hgb 13.8 L, Hct 39.8 L, MCV 92.6, MCH 32.1 H, MCHC 34.7, RDW 13.1, Plt Count 249, MPV 9.5, Neut # (Auto) 4.6, Lymph # (Auto) 2.6, Gregg # (Auto) 0.8, Eos # (Auto) 0.2, Baso # (Auto) 0.1, Absolute Nucleated RBC 0.00, Nucleated RBC % 0.0 Home Medications and Allergies <Jazlyn Davidson - Last Filed: 02/14/22 17:16> <Katrin Escobar - Last Filed: 02/14/22 20:11> Home Medications: Ambulatory Orders lisinopriL [Lisinopril] 10 mg PO DAILY 02/14/22 Active Medications Chlorhexidine Gluconate (Chlorhexidine Gluconate 15 Ml Udc) 15 ml PO BID [facility] Ampicillin Sodium/Sulbactam (Sodium 3 gm/ Sodium Chloride) 100 mls @ 200 mls/hr IV Q6HR [facility] Ibuprofen (Ibuprofen 100 Mg/5 Ml Udc) 600 mg PO Q6HR [facility] Morphine Sulfate (Morphine 2 Mg/Ml Carpuject) 2 mg IVP Q2HR PRN PRN Reason: Pain 8 to 10 Ondansetron HCl (Ondansetron 4 Mg/2 Ml Vial) 4 mg IVP Q6HR PRN PRN Reason: Nausea / Vomiting Oxycodone HCl (Oxycodone 10 Mg/0.5 Ml Syringe) 10 mg PO Q4HR PRN PRN Reason: PAIN Levothyroxine Sodium [Synthroid] 100 mcg PO DAILY 07/12/13 Propranolol HCl 20 mg PO DAILY 07/12/13 Atorvastatin Calcium [Lipitor] 40 mg PO DAILY 11/11/13 lisinopriL [Lisinopril] 10 mg PO DAILY 02/14/22 Allergies/Adverse Reactions: Allergies Allergy/AdvReac Type Severity Reaction Status Date / Time tuberculin, purified protein Allergy Edema Verified 02/14/22 09:22 deriva [Tuberculin,Purif.Prot.Deriv.] Anes History & Medical History - Medical History Cardiovascular: reports: Hypertension, High cholesterol Pulmonary: reports: Sleep apnea Gastrointestinal: reports: Colon polyps Urinary: reports: Kidney stones Musculoskeletal: reports: None Endocrine/Autoimmune: reports: HyPOthyroidism Skin: reports: Other Smoking Status: Never smoker - Surgical History General: reports: Colonoscopy Eyes Ears Nose Throat (EENT): reports: Cataracts Cardiothoracic: reports: Vascular surgery, AAA Urologic: reports: Prostatic surgery <Jazlyn Davidson - Last Filed: 02/14/22 17:16> - Anesthetic History Anesthesia Complications: reports: No previous complications Family history of Anesthesia Complications: Denies Family history of Malignant Hyperthermia: Denies - Medical History Cardiovascular: reports: Hypertension, High cholesterol, Other (AORTIC STENTS- EARLY 2021) Gastrointestinal: reports: Other (COLON CA; COLON RESECTION OCTOBER 2021) Neuro: reports: None Endocrine/Autoimmune: reports: HyPOthyroidism Blood Disorders: reports: None Psychosocial: reports: No issues indicated History of Cancer?: Yes - Surgical History General: reports: Bowel surgery Cardiothoracic: reports: Other (AORTIC STENTS) <Katrin Escobar - Last Filed: 02/14/22 20:11> Exam General: Alert, Oriented x3, Cooperative, No acute distress Dental: Other (FACIAL TRAUMA) Mouth Openin Fingerbreadth Neck Mobility: Normal Mallampati classification: III Thyromental Distance: 4-6 cm Mental/Cognitive Status: Alert/Oriented X3, Normal for patient Cognitive Status: Within normal limits <Katrin Escobar - Last Filed: 02/14/22 20:11> Plan Anesthesia Type: General Consent for Procedure(s) Verified and Reviewed: Yes Code Status: Attempt Resuscitation ASA classification: 2-Mild systemic disease Is this case an emergency?: Yes <Jazlyn Davidson - Last Filed: 02/14/22 17:16> ASA classification: 3-Severe systemic disease <Katrin Escobar - Last Filed: 02/14/22 20:11>
[2022-02-14] MEDS ORDERED: IBUPROFEN 100 MG/5 ML UDC PO SCH ×2 (18:00)
[2022-02-14] MEDS ORDERED: AMPICILLIN/SULBACTAM 3 GM in SODIUM CHLORIDE 0.9% MINIBAG 100 ML IV ONE (19:00)
[2022-02-14] MEDS: AMPICILLIN/SULBACTAM 3 GM in SODIUM CHLORIDE 0.9% MINIBAG 100 ML IV SCH (19:08)
[2022-02-14] MEDS ORDERED: LIDOCAINE MPF 2%-EPI 1:200000 20 ML VIAL ONE (19:46)
[2022-02-14] MEDS ORDERED: BACITRACIN ZINC OINT 1 PACKET TOP ONE (19:46)
[2022-02-14] MEDS ORDERED: CHLORHEXIDINE GLUCONATE 15 ML UDC PO ONE (19:47)
[2022-02-14] MEDS ORDERED: PROPOFOL 200 MG/20 ML VIAL IVP ONE (19:56)
[2022-02-14] MEDS ORDERED: SUGAMMADEX 200 MG/2 ML VIAL IVP ONE (19:56)
[2022-02-14] MEDS ORDERED: ROCURONIUM 50 MG/5 ML VIAL ONE ×2 (19:56→21:47)
[2022-02-14] MEDS ORDERED: DEXAMETHASONE 4 MG/ML VIAL ONE (19:56)
[2022-02-14] MEDS ORDERED: fentaNYL 100 MCG/2 ML VIAL ONE (19:58)
--- NOTE | 2022-02-14 20:21 | SURGERY HX AND PHYSICAL(T) ---
Surgical History & Physical - Chief Complaint/HPI Chief Complaint: Facial pain History of Present Illness: 82 yo M, walking in the [employer] parking lot, stumbled and fell on the asphalt, striking his arms and face. Immediately after the event witnesses helped him up and he ambulated and was coherent. He denies loss of consciousness. He presented to the ER where he was found to have avulsed teeth and a CT max/face was taken. Multiple facial fractures were revealed and OMFS was consulted for evaluation and management of the fractures. He endorses a feeling of numbness of the upper gingiva. Endorses facial pain. Denies vision changes, n/v, cp, dizziness, neck pain, limited neck movement. - PMH/PSH/Social Hx Does the pt have a hx of MRSA?: No Neurological History: None Eyes, Ears, Nose, Throat: Chronic vision loss Cardiovascular: Hypertension, High cholesterol, Other (AORTIC STENTS- EARLY 2021) Respiratory: Sleep apnea Skin: Other Endocrine/Autoimmune: HyPOthyroidism Gastrointestinal: Other (COLON CA; COLON RESECTION OCTOBER 2021) Urinary: Kidney stones Musculoskeletal: None Blood Disorders: None Psychiatric: None General: Bowel surgery Urologic: Prostatic surgery Cardiothoracic: Other (AORTIC STENTS) Eyes Ears Nose Throat (EENT): Cataracts Smoking Status: Never smoker Does the pt drink ETOH?: No Does the pt have substance abuse?: No - Family Hx Family Hx: Unremarkable - Home Meds and Allergies Home Medications: Levothyroxine Sodium [Synthroid] 100 mcg PO DAILY 07/12/13 Propranolol HCl 20 mg PO DAILY 07/12/13 Atorvastatin Calcium [Lipitor] 40 mg PO DAILY 11/11/13 lisinopriL [Lisinopril] 10 mg PO DAILY 02/14/22 Allergies/Adverse Reactions: Allergies Allergy/AdvReac Type Severity Reaction Status Date / Time tuberculin, purified protein Allergy Edema Verified 02/14/22 09:22 deriva [Tuberculin,Purif.Prot.Deriv.] - Review of Systems Constitutional: No: Fever, Chills HEENT: Other (malocclusion). No: Headaches, Visual changes, Eye pain Skin: Other (Other ten systems reviewed and negative except as noted above) - Vital Signs Heart Rate: 70 Blood Pressure: 123/54 Temperature: 36.4 C Respiratory Rate: 26 O2 Saturation: 98 Weight (kg): 69.8 kg Height: 5 ft 7 in - Physical Exam General Appearance: positive: No acute distress, Alert Eyes Bilatera: positive: PERRL, EOMI, Other (Bilateral periorbital edema and ecchymosis. No laxity of the medial canthal ligament. No proptosis or visible change in globe position. Mild chemosis OS.) ENT: positive: Other (Maxilla mobile. Missing and fracture anterior maxillary teeth. Large avulsive injury of the upper lip involving the johnson and cupids bow, 3 cm length. Dressing on the nose, not removed, but the bilateral nares are non-patent. No EAC blood, both sides patent, hearing unchanged.) Neck: positive: Other (No tenderness of the cervical spine. No springer sign.) Respiratory: positive: Chest non-tender, No respiratory distress Cardiovascular: positive: Regular rate & rhythm Peripheral Pulses: positive: 2+ Abdomen: positive: Non-tender, No distention Skin: positive: Other (ecchymosis and abraisions of the face ecchymosis and abraisions of the bilateral upper extremities, dorsal hand and wrist.) Extremities: positive: Full ROM. negative: Nml appearance (abraisions of the skin of the dorsal hand and wrist) Neurologic/Psychiatric: positive: Other (Normal sensation Bilateral V1, V2,V3. No clear drainage from the mouth or ears. Symmetric strong meat apprentice strength BUE) - Patient Review Patient Review: Problems were reviewed with the patient during this visit. Medications were reviewed with the patient during this visit. Allergies were reviewed this patient during this visit. Pertinent Tests Reviewed: All pertitent test for this patient were reviewed. - Assessment & Plan Assessment and Plan: 82 yo M s/p mechanical GLF, no LOC, sustaining the following maxillofacial injuries: - lefort II fracture - avusion and fracture of maxillary teeth. Unspecified until exam under anesthesia - Fractured nasal septum - avulsive injury of the upper lip including the johnson, 3cm - likely a laceration of the bridge of the nose, but it is covered by a dressing. Will be removed in OR. Mandible is intact Loss of bridge of the anterior maxillary teeth. P: ORIF of the Leforte II fracture with removal of nonrestorable teeth and intermaxillary fixation, and closure of lacerations/wounds. - Unasyn 3g q6h - Will do submental intubation - wake up without IMF in place. Place tomorrow in clinic. - Home after ambulating and voiding, and taking good PO. Please call w/ questions. Marshall Faith DDS [phone]
[2022-02-14] MEDS ORDERED: LACTATED RINGERS 1,000 ML IV SCH ×2 (21:00)
[2022-02-14] MEDS ORDERED: NALOXONE 0.4 MG/ML VIAL IVP PRN (21:00)
[2022-02-14] MEDS ORDERED: CHLORHEXIDINE GLUCONATE 15 ML UDC PO SCH (21:00)
[2022-02-14] MEDS ORDERED: ePHEDrine 50 MG/ML VIAL IVP PRN (21:00)
[2022-02-14] MEDS ORDERED: HYDROmorphone 0.5 MG/0.5 ML SYRINGE IVP PRN (21:00)
[2022-02-14] MEDS ORDERED: ATROPINE ABBOJECT 1 MG/10 ML SYRINGE IVP PRN (21:00)
[2022-02-14] MEDS ORDERED: METOCLOPRAMIDE 10 MG/2 ML VIAL IVP PRN (21:00)
[2022-02-14] MEDS ORDERED: fentaNYL 100 MCG/2 ML VIAL IVP PRN (21:00)
[2022-02-14] MEDS ORDERED: LIDOCAINE 2%-EPI 1:100000 20 ML MDV SUBQ ONE ×2 (21:06)
[2022-02-14] MEDS ORDERED: PHENYLEPHRINE 10 MG/ML VIAL ONE (22:32)
[2022-02-14] MEDS ORDERED: DEXAMETHASONE 10 MG/ML VIAL ONE (23:32)
[2022-02-15] MEDS ORDERED: BACITRACIN ZINC OINT 1 PACKET TOP ONE (00:09)
[2022-02-15] MEDS ORDERED: ACETAMINOPHEN 1,000 MG/100 ML 1,000 MG/100 ML BAG IV ONE (00:17)
[2022-02-15] MEDS ORDERED: BACITRACIN ZINC OINT 14 GM TOP ONE (00:28)
[2022-02-15] MEDS ORDERED: fentaNYL 100 MCG/2 ML VIAL ONE (00:30)
--- NOTE | 2022-02-15 00:47 | OPERATIVE REPORT ---
Operative Report - General Planned Procedure: 1. ORIF Leforte II fracture via multiple transfacial approaches 2. CR B nasal bones and septum 3. Closure of 3 cm complex stellate laceration of the upper lip with avulsion of tissue, involving the johnson, layered. 4. Submental intubation 5. Intraoperative intermaxillary fixation Pre-Op Diagnosis: Leforte II fracture, NB and septal fracture, Upper lip laceration Procedure Performed: 1. ORIF Leforte II fracture via multiple transfacial approaches 2. CR B nasal bones and septum 3. Closure of 3 cm complex stellate laceration of the upper lip with avulsion of tissue, involving the johnson, layered. 4. Submental intubation 5. Intraoperative intermaxillary fixation Post Op Diagnosis: Leforte II fracture, NB and septal fracture, Upper lip laceration - Procedure Note Primary Surgeon: Marshall Faith DDS Anesthesia Provider: Jazlyn Davidson CRNA Anesthesia Technique: General ET tube (Submental intubation) IV Fluids (mL): 1,500 Estimated Blood Loss (mL): 200 Indications: Louis is an 82 yo M who fell in the [employer] parking lot. Clinical and radiographic exam are consistent with multiple facial fractures and lacerations. It was decided that Louis would need ORIF of the facial fractures and repair of the soft tissue injuries as detailed above. The RBAs of this plan were discussed with Louis including pain, swelling, bleeding, damage to teeth, malunion, nonunion, parasthesia, vision change, vision loss, difficulty breathing through the nose, poor cosmesis, and malocclusion. Adequate time was given to answer all questions and informed consent was obtained. Findings: The patient was brought into the main operating room and placed in a supine position on the operating table. General anesthesia was induced by the anesthesia team and the airway was secured with an oral tube, guarded. The eyes were protected with corneal lyle. The patient was prepped and draped in the standard sterile fashion. All pressure points were padded and checked. A formal timeout was executed. Local anesthesia was acheived w/ 20 mL of 2% lidocaine w/ epi. A throat pack was placed. The mouth was washed w/ peridex and the teeth were brushed. An incision was made in the L neck submandibular region, paramidline. A passage was created to the L floor of the mouth with blunt dissection. The Oral tube was disconnected from the circuit. The tube was connected to a red rubber catheter and the catheter was used to guide the tube through the floor of the mouth and out the neck, performing a submental intubation. The cirguit wsa reconnected an the patient was ventilated sucessfully. The lungs were auscultated to confirm good tube position above the dorothy. The tube was secured to the neck with 2-0 silk suture. Deedee loops were made from 24 g wire and placed around the teth in the usual fashion. An incision was made in the maxillary vestibule down to bone, making sure to protect the Amari's ducts. Bleeding was controlled with afrin soaked cottonoids. The maxilla was exposed in a subperiosteal plane, easilty identifhing the fractures. The frontonasal suture was accessed with the horizontal component of the open julianne incision. Subperiosteal dissection was performed and the fractues of the nasal bones were easily identified. This dissection was made congruent with the intraoral dissection on either side of the nose. IMF was placed w/ 24 g wires. The maxilla was reduced with hand instruments. An L plate was placed on the L zygomaticomaxillary sutures. A large straight plate was adapted to curve around the piriform rim and extend from the fr ontonasal junction to the intact bone of the anterior maxilla on the left and then again ont he right. A single straight plate was placed on the right zygomaticomaxillary suture. The IMF was removed. Occlusion was verified to be anatomic. The face was cleansed thoroughly. The upper lip was evaluated and found to have avulsion of soft tissue, as expected during the initial examination in the ER. The wound was rinsed and necrotic tags of tissue was debrided conservatively. The wound edges were advanced and closed w/ 4-0 vicryl suture, taking care to align the johnson where it still remained. The intraoral components of the epithelial layer were closed w/ 4-0 vicryl. The johnson and the skin were closed w/ 5-0 prolene. All surgical wounds were rinsed. The open julianne incision was closed in layers, with the deep layers being closed w/ 4-0 vicrly suture and the skin being closed w/ 5-0 prolene. The intraoral incision in the maxillary vestibule was closed w/ 4-0 vicryl. The anesthesia circuit was disconnected from the ET tube. The tube was retreived back into the mouth. The circuit was reconnected and the patient was ventilated uneventfully. The neck incision was rinsed and the deep layers were closed w/ 4-0 vicryl suture and the skin was closed w/ 5-0 prolene suture. Hand instruments were used to reduced the nasal bones and septum. Two merocel splints were covered in bacitracin and packed into the nose. The mouth and throat were rinsed and suctioned and the throat pack was removed. The patient was emerged from anesthesia uneventfully. He was transferred to PACU in stable condition. Complications: None
--- NOTE | 2022-02-15 01:31 | ANESTHESIA POST OP EVALUATION ---
Anesthesia Post Eval - Post Anesthesia Eval Vitals: Last Vital Signs Temp 36.7 C 02/15/22 01:20 Pulse 67 02/15/22 01:20 Resp 12 02/15/22 01:20 BP 120/55 L 02/15/22 01:20 Pulse Ox 92 02/15/22 01:20 O2 Flow Rate CV Function Including HR & BP: Stable Pain Control: Satisfactory Nausea & Vomiting: Negative Mental Status: Baseline Respiratory Status: Airway Patent Hydration Status: Satisfactory Anesthesia Complications: None
[2022-02-15] MEDS ORDERED: oxyCODONE 10 MG/0.5 ML SYRINGE PO PRN (01:53)
[2022-02-15] MEDS: CHLORHEXIDINE GLUCONATE 15 ML UDC PO SCH ×2 (02:12→08:48)
[2022-02-15] MEDS ORDERED: IBUPROFEN 100 MG/5 ML UDC PO SCH (02:19)
[2022-02-15] MEDS: AMPICILLIN/SULBACTAM 3 GM in SODIUM CHLORIDE 0.9% MINIBAG 100 ML IV SCH (02:47)
[2022-02-15] MEDS: IBUPROFEN 100 MG/5 ML UDC PO SCH ×2 (02:47→10:08)
[2022-02-15] MEDS ORDERED: SODIUM CHLORIDE 0.9% MINIBAG 100 ML IV ONE (02:50)
[2022-02-15] MEDS ORDERED: AMPICILLIN/SULBACTAM 3 GM VIAL IV ONE (02:50)
[2022-02-15] MEDS ORDERED: AMPICILLIN/SULBACTAM 3 GM in SODIUM CHLORIDE 0.9% MINIBAG 100 ML IV SCH (09:00)
[2022-02-15 11:22] VITALS: BP 141/58
== END 2022-02-15 11:06 | disposition home or self-care (01) ==
LOC: EDUNIT# → ED 09:05 → SDS 16:26 → MS2 02-15 01:53 → SDS 02-15 01:53 → MS2 02-15 02:00 → SDS 02-15 11:06
PROVIDERS: ATTEND Dentist Oral and Maxillofacial Surgery
DX: S02.412A LeFort II fracture, initial encounter for closed fracture (principal); S02.2XXB Fracture of nasal bones, initial encounter for open fracture; S02.19XA Other fracture of base of skull, initial encounter for closed fracture; S01.511A Laceration without foreign body of lip, initial encounter; S01.81XA Laceration without foreign body of other part of head, initial encounter; S03.2XXA Dislocation of tooth, initial encounter; S02.119A Unspecified fracture of occiput, initial encounter for closed fracture; W01.0XXA Fall on same level from slipping, tripping and stumbling without subsequent striking against object, initial encounter; Y92.481 Parking lot as the place of occurrence of the external cause; I10 Essential (primary) hypertension; E78.00 Pure hypercholesterolemia, unspecified; E03.9 Hypothyroidism, unspecified; R07.9 Chest pain, unspecified; H54.7 Unspecified visual loss; G47.30 Sleep apnea, unspecified; Z20.822 Contact with and (suspected) exposure to COVID-19; Z79.890 Hormone replacement therapy; Z79.899 Other long term (current) drug therapy
CPT/HCPCS: 12052; 21337; 21346; 36415; 70450; 70486; 71045; 72125; 80053; 83690; 85025; 87633; 93005; 96365; 96366; 96375; 99283; 99285; A9270; C1713; J0131; J1170

== ENCOUNTER 2022-10-05 07:46 | Outpatient (CLI) | payer MEDICARE, OTHER ==
[2022-10-05 12:07] LABS: BASOPHILS # (AUTO) 0.1 10^3/uL (0.0-0.1); BASOPHILS % (AUTO) 1.7 %; EOSINOPHILS # (AUTO) 0.2 10^3/uL (0.0-0.7); HCT - HEMATOCRIT 42.4 % (42.0-52.0); HGB - HEMOGLOBIN 13.8 g/dL (14.0-18.0); LYMPHOCYTES # (AUTO) 2.4 10^3/uL (1.5-3.5); LYMPHOCYTES % (AUTO) 36.4 %; MEAN CORPUSCULAR HEMOGLOBIN 30.6 pg (27.0-31.0); MEAN CORPUSCULAR HGB CONC 32.5 g/dL (32.0-36.0); MEAN PLATELET VOLUME 9.8 fL (7.4-11.4); MONOCYTES # (AUTO) 0.6 10^3/uL (0.0-1.0); MONOCYTES % (AUTO) 9.4 %; NEUTROPHILS # (AUTO) 3.3 10^3/uL (1.5-6.6); NEUTROPHILS % (AUTO) 49.3 %; PLT - PLATELET COUNT 189 10^3/uL (130-450); RED BLOOD COUNT 4.51 10^6/uL (4.70-6.10); RED CELL DISTRIBUTION WIDTH 13.2 % (12.0-15.0); WHITE BLOOD COUNT 6.6 x10^3/uL (4.8-10.8)
[2022-10-05 13:21] LABS: ALBUMIN 3.6 g/dL (3.2-5.5); ALBUMIN/GLOBULIN RATIO 1.1 (1.0-2.2); ALKALINE PHOSPHATASE 62 IU/L (42-121); ALT ALANINE AMINOTRANSFERASE 23 IU/L (10-60); AST ASPARTATE AMINOTRANSFERASE 24 IU/L (10-42); BILIRUBIN,TOTAL 0.8 mg/dL (0.2-1.0); BUN - BLOOD UREA NITROGEN 20 mg/dL (6-20); CALCIUM 8.7 mg/dL (8.5-10.3); CARBON DIOXIDE - CO2 26 mmol/L (21-32); CHLORIDE 110 mmol/L (101-111); CHOL/HDL RATIO 2.5 (<5.0); CHOLESTEROL 113 mg/dL; GFR - MDRD 72 (>89); GLUCOSE 105 mg/dL (70-100); HDL CHOLESTEROL 45 mg/dL; LDL CHOLESTEROL,CALCULATED 51 mg/dL; LDL/HDL RATIO 1.1 (<3.6); POTASSIUM 4.2 mmol/L (3.5-5.0); SODIUM 140 mmol/L (135-145); TOTAL PROTEIN 6.8 g/dL (6.7-8.2); TRIGLYCERIDES 85 mg/dL; VLDL CHOLESTEROL 17 mg/dL
[2022-10-05 13:48] LABS: THYROID STIMULATING HORMONE < 0.08 uIU/mL (0.34-5.60)
[2022-10-05 14:26] LABS: FREE T4 (FREE THYROXINE) 1.28 ng/dL (0.58-1.64)
== END 2022-10-05 07:47 | disposition home or self-care (01) ==
LOC: LAB.N 07:46
PROVIDERS: ATTEND Nurse Practitioner Family
DX: I10 Essential (primary) hypertension (principal); E78.5 Hyperlipidemia, unspecified; E03.9 Hypothyroidism, unspecified
CPT/HCPCS: 36415; 80053; 80061; 83721; 84439; 84443; 85025

== ENCOUNTER 2022-11-14 07:40 | Outpatient (CLI) | payer MEDICARE, OTHER ==
[2022-11-14 13:55] LABS: THYROID STIMULATING HORMONE 0.46 uIU/mL (0.34-5.60)
== END 2022-11-14 07:41 | disposition home or self-care (01) ==
LOC: LAB.N 07:40
PROVIDERS: ATTEND Nurse Practitioner Family
DX: E03.9 Hypothyroidism, unspecified (principal)
CPT/HCPCS: 36415; 84443

== ENCOUNTER 2023-04-11 10:23 | Outpatient (CLI) | payer MEDICARE, OTHER ==
[2023-04-11 18:12] LABS: CALCIUM 9.4 mg/dL (8.5-10.3); CREATININE 1.2 mg/dL (0.6-1.3); POTASSIUM 4.8 mmol/L (3.5-4.5)
[2023-04-11 18:19] LABS: THYROID STIMULATING HORMONE 0.52 uIU/mL (0.34-5.60)
[2023-04-11 18:22] LABS: HGB - HEMOGLOBIN 14.1 g/dL (14.0-18.0); MEAN CORPUSCULAR HEMOGLOBIN 31.1 pg (27.0-31.0); MEAN CORPUSCULAR VOLUME 96.9 fL (80.0-94.0); MEAN PLATELET VOLUME 9.7 fL (7.4-11.4); RED BLOOD COUNT 4.54 10^6/uL (4.70-6.10); RED CELL DISTRIBUTION WIDTH 12.8 % (12.0-15.0); WHITE BLOOD COUNT 6.8 x10^3/uL (4.8-10.8)
== END 2023-04-11 10:24 | disposition home or self-care (01) ==
LOC: LAB.N 10:23
PROVIDERS: ATTEND Nurse Practitioner Family
DX: I10 Essential (primary) hypertension (principal); E03.9 Hypothyroidism, unspecified
CPT/HCPCS: 36415; 80048; 84443; 85027

== ENCOUNTER 2023-09-13 07:33 | Outpatient (CLI) | payer MEDICARE, OTHER ==
[2023-09-13 11:48] LABS: BASOPHILS # (AUTO) 0.1 10^3/uL (0.0-0.1); BASOPHILS % (AUTO) 1.5 %; EOSINOPHILS # (AUTO) 0.2 10^3/uL (0.0-0.7); EOSINOPHILS % (AUTO) 2.9 %; HCT - HEMATOCRIT 39.9 % (42.0-52.0); HGB - HEMOGLOBIN 13.2 g/dL (14.0-18.0); LYMPHOCYTES # (AUTO) 2.5 10^3/uL (1.5-3.5); LYMPHOCYTES % (AUTO) 34.5 %; MEAN CORPUSCULAR HEMOGLOBIN 31.3 pg (27.0-31.0); MEAN CORPUSCULAR HGB CONC 33.1 g/dL (32.0-36.0); MEAN CORPUSCULAR VOLUME 94.5 fL (80.0-94.0); MEAN PLATELET VOLUME 9.5 fL (7.4-11.4); MONOCYTES # (AUTO) 0.7 10^3/uL (0.0-1.0); MONOCYTES % (AUTO) 9.5 %; NEUTROPHILS # (AUTO) 3.7 10^3/uL (1.5-6.6); NEUTROPHILS % (AUTO) 51.3 %; PLT - PLATELET COUNT 225 10^3/uL (130-450); RED BLOOD COUNT 4.22 10^6/uL (4.70-6.10); RED CELL DISTRIBUTION WIDTH 12.9 % (12.0-15.0); WHITE BLOOD COUNT 7.3 x10^3/uL (4.8-10.8)
[2023-09-13 12:29] LABS: BUN - BLOOD UREA NITROGEN 27 mg/dL (6-20); CALCIUM 9.3 mg/dL (8.5-10.3); CARBON DIOXIDE - CO2 27 mmol/L (21-32); CHLORIDE 107 mmol/L (101-111); CHOL/HDL RATIO 3.4 (<5.0); CHOLESTEROL 134 mg/dL; CREATININE 1.1 mg/dL (0.6-1.3); GFR - MDRD 64 (>89); GLUCOSE 95 mg/dL (74-104); HDL CHOLESTEROL 40 mg/dL; LDL CHOLESTEROL,CALCULATED 70 mg/dL; LDL/HDL RATIO 1.8 (<3.6); POTASSIUM 4.4 mmol/L (3.5-4.5); SODIUM 138 mmol/L (135-145); THYROID STIMULATING HORMONE 0.31 uIU/mL (0.34-5.60); TRIGLYCERIDES 119 mg/dL (48-352); VLDL CHOLESTEROL 24 mg/dL
== END 2023-09-13 07:34 | disposition home or self-care (01) ==
LOC: LAB.N 07:33
PROVIDERS: ATTEND Nurse Practitioner Family
DX: I10 Essential (primary) hypertension (principal); E78.5 Hyperlipidemia, unspecified; E03.9 Hypothyroidism, unspecified
CPT/HCPCS: 36415; 80048; 80061; 83721; 84439; 84443; 85025

== ENCOUNTER 2023-09-21 07:39 | Outpatient (CLI) | payer MEDICARE, OTHER ==
[2023-09-21 12:41] LABS: THYROID STIMULATING HORMONE 0.24 uIU/mL (0.34-5.60)
== END 2023-09-21 07:40 | disposition home or self-care (01) ==
LOC: LAB.N 07:39
PROVIDERS: ATTEND Nurse Practitioner Family
DX: C61 Malignant neoplasm of prostate (principal); E03.9 Hypothyroidism, unspecified
CPT/HCPCS: 36415; 84153; 84439; 84443

== ENCOUNTER 2023-11-28 07:45 | Outpatient (CLI) | payer MEDICARE, OTHER ==
[2023-11-28 12:43] LABS: THYROID STIMULATING HORMONE 8.55 uIU/mL (0.34-5.60)
== END 2023-11-28 07:46 | disposition home or self-care (01) ==
LOC: LAB.N 07:45
PROVIDERS: ATTEND Nurse Practitioner Family
DX: E03.9 Hypothyroidism, unspecified (principal)
CPT/HCPCS: 36415; 84439; 84443

== ENCOUNTER 2023-12-06 10:41 | Outpatient (CLI) | payer MEDICARE, OTHER ==
[2023-12-06 11:17] LABS: CALCIUM 9.4 mg/dL (8.5-10.3); CREATININE 1.2 mg/dL (0.6-1.3); POTASSIUM 4.2 mmol/L (3.5-4.5)
[2023-12-06] MEDS: iohexoL-300 100 ML VIAL IVP ONE (16:07)
--- NOTE | 2023-12-06 17:42 | CT Report ---
PROCEDURE: Angio Abdomen/Pelvis INDICATIONS: AAA CONTRAST: Omni 300 100ml TECHNIQUE: After the administration of intravenous contrast, 2.5 mm thick sections acquired from the diaphragm t o the symphysis. 10 mm maximum-intensity projection (MIP) reformats were then acquired. For radiati on dose reduction, the following was used: automated exposure control, adjustment of mA and/or kV ac cording to patient size. COMPARISON: CT abdomen pelvis 12/26/2022 FINDINGS: Image quality: Excellent. Aorta: Aortoiliac endovascular stent is present, appearing unchanged. There is no visualization of e ndoleak. Aneurysmal sac is unchanged measuring approximately 3.2 cm. Mural thrombus previously identi fied in the distal aspect of the descending thoracic aorta is unchanged. There are bilateral renal ar desi stents widely patent. Mesenteric arteries: Celiac trunk, superior and inferior mesenteric arteries appear patent. Right pelvic arteries: Patent Left pelvic arteries: Patent Extravascular soft tissues: Lung bases are clear. Heart size is normal. Liver and spleen are bay l in size and enhancement. Gallbladder is unremarkable.. Biliary system is non dilated. Pancreas e nhances normally. No adrenal nodules. Kidneys are normal in size and enhancement, without hydroneph rosis. There is identified focus of decreased contrast enhancement within the inferior left renal linnette e is stable and as suspected likely related to prior chest or branch occlusion. Non opacified bowel l oops are normal in wall thickness and caliber. No free fluid or air. No retroperitoneal or mesenter ic adenopathy. No ventral hernias. No suspicious bony lesions. No vertebral body compression fract ures. Brachial therapy seeds are present within the prostate. 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 No evidence of endoleak. Stable appearance of descending thoracic aortic mural thrombus. Unchanged appearance of low-attenuation most inferior left renal pole likely related to prior branch occlusion. Bilateral renal stents are widely patent. Reviewed by: Diana Eastman MD on 12/06/2023 5:40 PM PDT Approved by: Diana Eastman MD on 12/06/2023 5:40 PM PDT Station ID: [id number]
== END 2023-12-06 10:42 | disposition home or self-care (01) ==
LOC: LAB 10:41
PROVIDERS: ATTEND Student in an Organized Health Care Education/Training Program
DX: Z98.890 Other specified postprocedural states (principal); Z86.79 Personal history of other diseases of the circulatory system; I74.11 Embolism and thrombosis of thoracic aorta
CPT/HCPCS: 36415; 74174; 80048; Q9967